=== PATIENT | female | born 1980 | race African-American/Black ===

== ENCOUNTER 2017-08-18 21:12 | Emergency (ER) | payer SELFPAY ==
[2017-08-19 00:26] LABS: Absolute Lymphocytes (CBC) 3.1 K/uL (0.7-4.9); Absolute Monocytes 0.6 K/uL (0.1-1.3); Basophils % 1.2 % (0-1.3); Eosinophils % 3.7 % (0-4.4); Hematocrit 35.4 % (36.0-45.0); Lymphocytes % 33.6 % (15.3-44.8); MCH 30.4 pg (27.0-35.0); MCV 87.8 fL (80-100); MPV 9.3 fL (7.6-11.3); Monocytes % 6.8 % (3.3-12.3); RBC Red Blood Cell Count 4.04 M/uL (3.86-4.86)
[2017-08-19 00:42] LABS: A1c Component 1.3 mg/dL; Hemoglobin A1c 12.1 % (4-6.0)
[2017-08-19 00:51] LABS: Potassium 3.8 mEq/L (3.6-5.0)
--- NOTE | 2017-08-19 01:05 | EDPHYS ---
Physician Documentation [facility] Name: Eris Sue Age: 36 yrs Sex: Female : 1980 Arrival Date: 08/18/2017 Time: 21:14 Bed 16 Private MD: ED Physician Edgardo Harley HPI: 08/18 23:56 This 36 yrs old Black Female presents to ER via Ambulatory with complaints of Headache, pkl Knee Pain, HEARTBURN. 23:57 Multiple small abscesses left knee, left buttock and lower back. Onset: The pkl symptoms/episode began/occurred 2 week(s) ago. Patient said she has diabetes but not taking any medications due to financial reasons. 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 - Social history:: Smoking status: Patient uses tobacco products, smokes one-half pack cigarettes per day. - Ebola Screening: : Patient denies travel to an Ebola-affected area in the 21 days before illness onset. ROS: 23:57 Eyes: Negative for injury, pain, redness, and discharge, ENT: Negative for injury, pkl pain, and discharge, Neck: Negative for injury, pain, and swelling, Cardiovascular: Negative for chest pain, palpitations, and edema, Respiratory: Negative for shortness of breath, cough, wheezing, and pleuritic chest pain, Abdomen/GI: Negative for abdominal pain, nausea, vomiting, diarrhea, and constipation, Back: Negative for injury and pain, : Negative for injury, bleeding, discharge, and swelling, MS/Extremity: Negative for injury and deformity, Neuro: Negative for headache, weakness, numbness, tingling, and seizure. 23:57 Skin: Positive for abscess, of the Left knee, left buttock and lower back. Exam: 08/19 00:03 Head/Face: Normocephalic, atraumatic. Eyes: Pupils equal round and reactive to light, pkl extra-ocular motions intact. Lids and lashes normal. Conjunctiva and sclera are non-icteric and not injected. Cornea within normal limits. Periorbital areas with no swelling, redness, or edema. ENT: Nares patent. No nasal discharge, no septal abnormalities noted. Tympanic membranes are normal and external auditory canals are clear. Oropharynx with no redness, swelling, or masses, exudates, or evidence of obstruction, uvula midline. Mucous membranes moist. Neck: Trachea midline, no thyromegaly or masses palpated, and no cervical lymphadenopathy. Supple, full range of motion without nuchal rigidity, or vertebral point tenderness. No Meningismus. Chest/axilla: Normal chest wall appearance and motion. Nontender with no deformity. No lesions are appreciated. Cardiovascular: Regular rate and rhythm with a normal S1 and S2. No gallops, murmurs, or rubs. Normal PMI, no JVD. No pulse deficits. Respiratory: Lungs have equal breath sounds bilaterally, clear to auscultation and percussion. No rales, rhonchi or wheezes noted. No increased work of breathing, no retractions or nasal flaring. Abdomen/GI: Soft, non-tender, with normal bowel sounds. No distension or tympany. No guarding or rebound. No evidence of tenderness throughout. Back: No spinal tenderness. No costovertebral tenderness. Full range of motion. MS/ Extremity: Pulses equal, no cyanosis. Neurovascular intact. Full, normal range of motion. Neuro: Awake and alert, GCS 15, oriented to person, place, time, and situation. Cranial nerves II-XII grossly intact. Motor strength 5/5 in all extremities. Sensory grossly intact. Cerebellar exam normal. Normal gait. Skin: abscess, that is small, approximately 0.5 cm(s), of the Left knee, left buttock and lower back, Abscesses are small and not ready for I and D. Vital Signs: 08/18 22:12 BP 133 / 84; Pulse 78; Resp 18; Temp 97.9; Pulse Ox 100% ; Weight 145.15 kg; Height 5 tl3 ft. 11 in. (180.34 cm); 23:45 BP 124 / 77; Pulse 77; Resp 15 S; Pulse Ox 100% on R/A; bs1 08/19 00:45 BP 116 / 74; Pulse 72; Resp 16 S; Pulse Ox 100% ; bs1 01:15 BP 112 / 71; Pulse 65; Resp 15 S; Temp 98(O); Pulse Ox 100% on R/A; Pain 0/10; bs1 08/18 22:12 Body Mass Index 44.63 (145.15 kg, 180.34 cm) tl3 MDM: 08/18 23:15 Patient medically screened. pk 08/19 01:03 Data reviewed: vital signs, nurses notes, radiologic studies. pk 08/18 23:55 Order name: CBC with Diff pk 08/18 23:55 Order name: Chem 7 pk 08/18 23:55 Order name: Hemoglobin A1c pk 08/18 23:55 Order name: Sed Rate pk 08/18 23:55 Order name: CBC with Automated Diff; Complete Time: 01:01 EDMS 08/18 23:55 Order name: Basic Metabolic Panel; Complete Time: 01:01 EDMS 08/18 23:55 Order name: Hemoglobin A1C; Complete Time: 01:01 EDMS 08/18 23:55 Order name: Sedimentation Rate, Westergren; Complete Time: 01:01 EDMS Administered Medications: 01:19 Drug: Cipro 500 mg Route: PO; bs1 01:33 Follow up: Response: No adverse reaction bs1 01:19 Drug: Bactrim (160 mg-800 mg (DS) 1 tablet Route: PO; bs1 01:32 Follow up: Response: No adverse reaction bs1 01:19 Drug: metFORMIN 1000 mg Route: PO; bs1 01:32 Follow up: Response: No adverse reaction bs1 Disposition: 08/19/17 01:05 Discharged to Home. Impression: Multiple small abscesses. Diabetes ( Non - compliance ). - Condition is Stable. - Prescriptions for Cipro 500 mg Oral Tablet - take 1 tablet by ORAL route every 12 hours for 7 days; 14 tablet. Metformin 1,000 mg Oral Tablet - take 1 tablet by ORAL route every 12 hours with morning and evening meals; 60 tablet. Bactrim DS 800- 160 mg Oral Tablet - take 1 tablet by ORAL route every 12 hours for 10 days; 20 tablet. - Medication Reconciliation Form, Thank You Letter, Antibiotic Education, Prescription Opioid Use form. - Follow up: Private Physician; When: 2 - 3 days; Reason: Re-evaluation by your physician. - Problem is new. - Symptoms are unchanged. Signatures: Dispatcher [facility] Edgardo Harley MD MD pkl Agustina Grimes, RN RN bs1 [place], Agnieszka, RN RN tl3 Corrections: (The following items were deleted from the chart) 01:36 01:05 08/19/2017 01:05 Discharged to Home. Impression: Multiple small abscesses. bs1 Diabetes ( Non - compliance ). Condition is Stable. Forms are Medication Reconciliation Form, Thank You Letter, Antibiotic Education, Prescription Opioid Use. Follow up: Private Physician; When: 2 - 3 days; Reason: Re-evaluation by your physician. Problem is new. Symptoms are unchanged. pkl
--- NOTE | 2017-08-19 01:05 | ER ---
Nurse's Notes [facility] Name: Eris Sue Age: 36 yrs Sex: Female : 1980 Arrival Date: 08/18/2017 Time: 21:14 Bed 16 Private MD: Diagnosis: Multiple small abscesses. Diabetes ( Non - compliance ) Presentation: 08/18 22:08 Presenting complaint: Patient states: abscess on right knee, hip and on buttock, tl3 headache steady pressure for the last week, heartburn present for two to three days, no OTC meds relieving symptoms. Transition of care: patient was not received from another setting of care. Onset of symptoms was August 16, 2017. Risk Assessment: Do you want to hurt yourself or someone else? Patient reports no desire to harm self or others. Initial Sepsis Screen: Does the patient meet any 2 criteria? No. Patient's initial sepsis screen is negative. Does the patient have a suspected source of infection? No. Patient's initial sepsis screen is negative. Care prior to arrival: Medication(s) given: tums, nexium, mylanta and Pepto. 22:08 Method Of Arrival: Ambulatory tl3 22:08 Acuity: ARIES 3 tl3 Triage Assessment: 22:12 Headache History: The patient has had previous headaches and this one is different than tl3 previous episodes. General: Appears uncomfortable, obese, well groomed, well developed, well nourished, Behavior is calm, cooperative, appropriate for age. Pain: Complains of pain in headache, left knee pain Pain currently is 9 out of 10 on a pain scale. Neuro: Level of Consciousness is awake, alert. 22:30 Pain: Pain began gradually, Also complains of nausea. 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 - Social history:: Smoking status: Patient uses tobacco products, smokes one-half pack cigarettes per day. - Ebola Screening: : Patient denies travel to an Ebola-affected area in the 21 days before illness onset. Screenin/18 01:21 Abuse screen: Denies threats or abuse. Denies injuries from another. Nutritional bs1 screening: No deficits noted. Tuberculosis screening: No symptoms or risk factors identified. Fall Risk None identified. Assessment: 08/18 22:48 General: Appears in no apparent distress. uncomfortable. Pain: Complains of pain in bs1 left knee, left hip, lower back, \T\ head. Neuro: Level of Consciousness is awake, alert, obeys commands, Oriented to person, place, time, situation, Appropriate for age. Neuro: Reports headache in right. Cardiovascular: Denies chest pain, shortness of breath, Heart tones S1 S2 present Capillary refill < 3 seconds Patient's skin is warm and dry. Respiratory: Airway is patent Trachea midline Respiratory effort is even, unlabored, Respiratory pattern is regular, symmetrical, Breath sounds are clear bilaterally. : No signs and/or symptoms were reported regarding the genitourinary system. EENT: No signs and/or symptoms were reported regarding the EENT system. Derm: Skin is intact, patient reports pain to left knee, reports having a boil to left knee, left hip and one that's forming in her lower back. Musculoskeletal: Circulation, motion, and sensation intact. Capillary refill < 3 seconds, Range of motion: intact in all extremities. 22:48 GI: Abdomen is round non-distended, Bowel sounds present X 4 quads. Reports epigastric bs1 pain, reports heartburn. 23:45 Reassessment: Patient appears in no apparent distress at this time. Patient and/or bs1 family updated on plan of care and expected duration. Pain level reassessed. Patient is alert, oriented x 3, equal unlabored respirations, skin warm/dry/pink. 08/19 01:10 Reassessment: Assisted Dr Harley with instructing patient on needing to follow up with a bs1 PCP and take diabetes medication and assess how she is doing. Patient states understanding of POC. 01:30 Reassessment: Patient appears in no apparent distress at this time. Patient and/or bs1 family updated on plan of care and expected duration. Pain level reassessed. Patient is alert, oriented x 3, equal unlabored respirations, skin warm/dry/pink. Patient denies pain at this time. Patient states feeling better. Patient states symptoms have improved. Vital Signs: 08/18 22:12 BP 133 / 84; Pulse 78; Resp 18; Temp 97.9; Pulse Ox 100% ; Weight 145.15 kg; Height 5 tl3 ft. 11 in. (180.34 cm); 23:45 BP 124 / 77; Pulse 77; Resp 15 S; Pulse Ox 100% on R/A; bs1 0618 00:45 BP 116 / 74; Pulse 72; Resp 16 S; Pulse Ox 100% ; bs1 01:15 BP 112 / 71; Pulse 65; Resp 15 S; Temp 98(O); Pulse Ox 100% on R/A; Pain 0/10; bs1 08/18 22:12 Body Mass Index 44.63 (145.15 kg, 180.34 cm) tl3 ED Course: 08/18 21:14 Patient arrived in ED. al2 22:11 Triage completed. tl3 22:12 Arm band placed on left wrist. tl3 22:49 Agustina Grimes, BRIANDA is Primary Nurse. bs1 23:15 Edgardo Harley MD is Attending Physician. pkl 08/19 00:11 Initial lab(s) drawn, by me, sent to lab. Inserted saline lock: 20 gauge in left cc antecubital area, using aseptic technique. Blood collected. 01:22 Patient has correct armband on for positive identification. Bed in low position. Call bs1 light in reach. Side rails up X 1. Pulse ox on. NIBP on. 01:22 No provider procedures requiring assistance completed. IV discontinued, bleeding bs1 controlled, No redness/swelling at site. Pressure dressing applied. Administered Medications: 01:19 Drug: Cipro 500 mg Route: PO; bs1 01:33 Follow up: Response: No adverse reaction bs1 01:19 Drug: Bactrim (160 mg-800 mg (DS) 1 tablet Route: PO; bs1 01:32 Follow up: Response: No adverse reaction bs1 01:19 Drug: metFORMIN 1000 mg Route: PO; bs1 01:32 Follow up: Response: No adverse reaction bs1 Outcome: 01:05 Discharge ordered by . pkl 01:23 Discharged to home ambulatory. bs1 01:23 Condition: stable 01:23 Discharge instructions given to patient, Instructed on discharge instructions, follow up and referral plans. medication usage, Demonstrated understanding of instructions, follow-up care, medications, Prescriptions given X 3. 01:36 Patient left the ED. bs1 Signatures: Edgardo Harley MD MD pkl Christian, Chelsea cc Salazar, Brittany, RN RN bs1 Emeli Crystal Tammy RN RN tl3 Corrections: (The following items were deleted from the chart) 08/18 23:40 22:48 GI: No signs and/or symptoms were reported involving the gastrointestinal system. bs1 bs1
[2017-08-19] MEDS ORDERED: SMZ./TMP. 800/160 MG TABLET ONE (01:17)
[2017-08-19] MEDS ORDERED: METFORMIN HCL 500 MG TAB ONE (01:17)
[2017-08-19] MEDS ORDERED: CIPROFLOXACIN HCL 500 MG TAB ONE (01:17)
[2017-08-19 02:57] VITALS: O2SAT 100
[2017-08-19 03:01] VITALS: BP 112/71; TEMP 98
== END 2017-08-19 01:36 | disposition home or self-care (01) ==
LOC: ER 21:12
DX: L02.416 Cutaneous abscess of left lower limb (principal); L02.31 Cutaneous abscess of buttock; L02.212 Cutaneous abscess of back [any part, except buttock and flank]; R51 Headache; R12 Heartburn; E11.9 Type 2 diabetes mellitus without complications; I10 Essential (primary) hypertension; F17.210 Nicotine dependence, cigarettes, uncomplicated; Z91.19 Patient's noncompliance with other medical treatment and regimen
CPT/HCPCS: 36415; 80048; 83036; 85025; 85652; 99284

== ENCOUNTER 2018-08-18 12:08 | Emergency (ER) | payer SELFPAY ==
[2018-08-18] MEDS ORDERED: IBUPROFEN 400 MG TAB ONE (13:46)
[2018-08-18] MEDS ORDERED: IBUPROFEN 200 MG TAB PO ONE (13:47)
[2018-08-18] MEDS ORDERED: ACETAMINOPHEN 500 MG TAB ONE (13:47)
--- NOTE | 2018-08-18 14:22 | RAD REPORT ---
EXAM DESCRIPTION: RAD - Lumbar Spine 3 Views - 08/18/2018 2:09 pm CLINICAL HISTORY: Back pain FINDINGS: Mild anterior subluxation L4 on L5 Alignment of the remainder lumbar spine is satisfactory No fracture is seen
--- NOTE | 2018-08-18 14:23 | RAD REPORT ---
EXAM DESCRIPTION: RAD - Elbow Right 3 View - 08/18/2018 2:09 pm CLINICAL HISTORY: Right elbow pain status post injury FINDINGS: No fracture or dislocation is seen.
--- NOTE | 2018-08-18 14:44 | RAD REPORT ---
EXAM DESCRIPTION: RAD - Hip Right 2 View - 08/18/2018 2:09 pm CLINICAL HISTORY: Right hip pain FINDINGS: No fracture or dislocation is seen. If the patient continues to have symptoms to suggest an occult fracture MRI would be recommended
--- NOTE | 2018-08-18 15:04 | EDPHYS ---
Physician Documentation [facility] Name: Ersi Sue Age: 37 yrs Sex: Female : 1980 Arrival Date: 08/18/2018 Time: 12:13 Bed 23 Private MD: ED Physician Willy Aguirre HPI: 08/18 15:15 This 37 yrs old Black Female presents to ER via Ambulatory with complaints of Fall wa Injury. 15:15 Details of fall: The patient fell from an upright position, while walking. Onset: The wa symptoms/episode began/occurred today. Associated injuries: The patient sustained pain on R side including Forearm, elbow and hip. also low back pain. Severity of symptoms: At their worst the symptoms were moderate, in the emergency department the symptoms are unchanged. The patient has not experienced similar symptoms in the past. The patient has not recently seen a physician. states fell at home attempting to get to her door this AM. denies LOC. 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 - Social history:: Smoking status: Patient/guardian denies using tobacco. - Ebola Screening: : No symptoms or risks identified at this time. - Family history:: not pertinent. - Hospitalizations: : No recent hospitalization is reported. ROS: 15:23 Constitutional: Negative for fever, chills, and weight loss, Eyes: Negative for injury, wa pain, redness, and discharge, ENT: Negative for injury, pain, and discharge, Neck: Negative for injury, pain, and swelling, Cardiovascular: Negative for chest pain, palpitations, and edema, Respiratory: Negative for shortness of breath, cough, wheezing, and pleuritic chest pain, Abdomen/GI: Negative for abdominal pain, nausea, vomiting, diarrhea, and constipation, : Negative for injury, bleeding, discharge, and swelling, Skin: Negative for injury, rash, and discoloration, Neuro: Negative for headache, weakness, numbness, tingling, and seizure, Psych: Negative for depression, anxiety, suicide ideation, homicidal ideation, and hallucinations. 15:23 Back: Positive for pain with movement, Negative for injury or acute deformity. 15:23 MS/extremity: Positive for pain, tenderness, of the right hip, Right elbow. Exam: 15:29 Constitutional: This is a well developed, well nourished patient who is awake, alert, wa and in no acute distress. Head/Face: Normocephalic, atraumatic. Eyes: Pupils equal round and reactive to light, extra-ocular motions intact. Lids and lashes normal. Conjunctiva and sclera are non-icteric and not injected. Cornea within normal limits. Periorbital areas with no swelling, redness, or edema. ENT: Nares patent. No nasal discharge, no septal abnormalities noted. Tympanic membranes are normal and external auditory canals are clear. Oropharynx with no redness, swelling, or masses, exudates, or evidence of obstruction, uvula midline. Mucous membranes moist. Neck: Trachea midline, no thyromegaly or masses palpated, and no cervical lymphadenopathy. Supple, full range of motion without nuchal rigidity, or vertebral point tenderness. No Meningismus. Chest/axilla: Normal chest wall appearance and motion. Nontender with no deformity. No lesions are appreciated. Cardiovascular: Regular rate and rhythm with a normal S1 and S2. No gallops, murmurs, or rubs. Normal PMI, no JVD. No pulse deficits. Respiratory: Lungs have equal breath sounds bilaterally, clear to auscultation and percussion. No rales, rhonchi or wheezes noted. No increased work of breathing, no retractions or nasal flaring. Abdomen/GI: Soft, non-tender, with normal bowel sounds. No distension or tympany. No guarding or rebound. No evidence of tenderness throughout. Skin: Warm, dry with normal turgor. Normal color with no rashes, no lesions, and no evidence of cellulitis. Neuro: Awake and alert, GCS 15, oriented to person, place, time, and situation. Cranial nerves II-XII grossly intact. Motor strength 5/5 in all extremities. Sensory grossly intact. Cerebellar exam normal. Normal gait. Psych: Awake, alert, with orientation to person, place and time. Behavior, mood, and affect are within normal limits. 15:29 Back: pain, that is mild, of the lumbar area, ROM is normal. 15:29 Musculoskeletal/extremity: Extremities: grossly normal except: noted in the right elbow. R hip: pain, tenderness. Vital Signs: 12:21 BP 123 / 80; Pulse 95; Resp 16; Temp 98; Pulse Ox 100% ; Weight 145.15 kg; Height 5 ft. bp 11 in. (180.34 cm); 13:05 BP 106 / 79; Pulse 84; Resp 16; Pulse Ox 100% on R/A; ca1 14:15 BP 138 / 85; Pulse 71; Pulse Ox 100% on R/A; jp3 15:00 BP 128 / 80; Pulse 57; Resp 17 S; Pulse Ox 100% on R/A; ca1 12:21 Body Mass Index 44.63 (145.15 kg, 180.34 cm) bp MDM: 13:03 Patient medically screened. ks 15:31 Differential diagnosis: contusion, fracture, sprain, strain. Data reviewed: vital wa signs, nurses notes. Test interpretation: by ED physician or midlevel provider: R elbow: no fx. R hip: no fx. lumbar x-ray: mild subluxation. 15:32 ED course: pain improved with po meds. ks 08/18 13:29 Order name: Elbow Right 3 View XRAY; Complete Time: 15:01 ks 08/18 13:29 Order name: Hip Right 2 View XRAY; Complete Time: 15:01 ks 08/18 13:29 Order name: Lumbar Spine (3 Views) XRAY; Complete Time: 14:59 ks Administered Medications: 14:05 Drug: Motrin 600 mg Route: PO; ca1 14:41 Follow up: Response: No adverse reaction; Pain is decreased ca1 14:06 Drug: Tylenol 1000 mg Route: PO; ca1 14:41 Follow up: Response: No adverse reaction; Pain is decreased ca1 Disposition: 08/18/18 15:03 Discharged to Home. Impression: fall, Right elbow pain secondary to trauma, Right hip pain secondary to trauma, acute lumbar sprain. - Condition is Stable. - Discharge Instructions: Fall Prevention in the Home, Back Pain, Adult, [id number], Back Injury Prevention. - Prescriptions for Ibuprofen 600 mg Oral Tablet - take 1 tablet by ORAL route every 8 hours As needed take with food; 15 tablet. - Medication Reconciliation Form, Thank You Letter, Antibiotic Education, Prescription Opioid Use form. - Follow up: Private Physician; When: 2 - 3 days; Reason: Recheck today's complaints. - Problem is new. - Symptoms have improved. - Notes: take pain medication as prescribed. see your doctor for further assessment if pain does not improve Signatures: Dispatcher [employer] EDMS Willy Aguirre MD MD wa Peltier, Brian, RN RN bp Maria T Wright RN RN ca1 Corrections: (The following items were deleted from the chart) 15:22 15:03 08/18/2018 15:03 Discharged to Home. Impression: fall; Right elbow pain secondary ca1 to trauma; Right hip pain secondary to trauma; acute lumbar sprain. Condition is Stable. Forms are Medication Reconciliation Form, Thank You Letter, Antibiotic Education, Prescription Opioid Use. Follow up: Private Physician; When: 2 - 3 days; Reason: Recheck today's complaints. Problem is new. Symptoms have improved. mary
--- NOTE | 2018-08-18 15:04 | ER ---
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 Transition of care: bp patient was not received from another setting of care. Onset of symptoms was August 18, 2018 at 11:30. Risk Assessment: Do you want to hurt yourself or someone else? Patient reports no desire to harm self or others. Initial Sepsis Screen: Does the patient meet any 2 criteria? No. Patient's initial sepsis screen is negative. Does the patient have a suspected source of infection? No. Patient's initial sepsis screen is negative. Care prior to arrival: None. 12:16 Method Of Arrival: Ambulatory bp 12:16 Acuity: ARIES 4 bp Triage Assessment: 12:42 General: Appears in no apparent distress. comfortable, obese, Behavior is calm, bp cooperative, appropriate for age. Pain: Complains of pain in back. EENT: No deficits noted. Neuro: Level of Consciousness is awake, alert, obeys commands, Oriented to person, place, time, situation, Appropriate for age. Cardiovascular: No deficits noted. Respiratory: Airway is patent Respiratory effort is even, unlabored, Respiratory pattern is regular, symmetrical. GI: No signs and/or symptoms were reported involving the gastrointestinal system. : No signs and/or symptoms were reported regarding the genitourinary system. Derm: No deficits noted. Musculoskeletal: Circulation, motion, and sensation intact. Range of motion: intact in all extremities. 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 - Social history:: Smoking status: Patient/guardian denies using tobacco. - Ebola Screening: : No symptoms or risks identified at this time. - Family history:: not pertinent. - Hospitalizations: : No recent hospitalization is reported. Screenin:05 Abuse screen: Denies threats or abuse. Denies injuries from another. Nutritional ca1 screening: No deficits noted. Tuberculosis screening: No symptoms or risk factors identified. Fall Risk Fall in past 12 months (25 points). Ambulatory Aid- Crutches/Cane/Walker (15 pts). Assessment: 13:05 General: Appears in no apparent distress. comfortable, Behavior is calm, cooperative, ca1 appropriate for age. Pain: Complains of pain in back, right hip and right arm Pain currently is 10 out of 10 on a pain scale. Pain began 1 hour ago. Neuro: Level of Consciousness is awake, alert, obeys commands, Oriented to person, place, time, situation. Cardiovascular: Heart tones S1 S2 present Capillary refill < 3 seconds Patient's skin is warm and dry. Respiratory: Airway is patent Respiratory effort is even, unlabored, Respiratory pattern is regular, symmetrical, Breath sounds are clear bilaterally. GI: Abdomen is round non-distended, Bowel sounds present X 4 quads. Abd is soft and non tender X 4 quads. : No deficits noted. No signs and/or symptoms were reported regarding the genitourinary system. EENT: No deficits noted. No signs and/or symptoms were reported regarding the EENT system. Derm: Skin is intact, is healthy with good turgor, Skin is pink, warm \T\ dry. Musculoskeletal: Circulation, motion, and sensation intact. Capillary refill < 3 seconds, Range of motion: intact in all extremities. 14:00 Reassessment: Patient appears in no apparent distress at this time. Patient and/or ca1 family updated on plan of care and expected duration. Pain level reassessed. Patient is alert, oriented x 3, equal unlabored respirations, skin warm/dry/pink. 14:40 Reassessment: Patient appears in no apparent distress at this time. Patient is alert, ca1 oriented x 3, equal unlabored respirations, skin warm/dry/pink. Patient states feeling better. 15:21 Reassessment: Patient appears in no apparent distress at this time. Patient is alert, ca1 oriented x 3, equal unlabored respirations, skin warm/dry/pink. Vital Signs: 12:21 BP 123 / 80; Pulse 95; Resp 16; Temp 98; Pulse Ox 100% ; Weight 145.15 kg; Height 5 ft. bp 11 in. (180.34 cm); 13:05 BP 106 / 79; Pulse 84; Resp 16; Pulse Ox 100% on R/A; ca1 14:15 BP 138 / 85; Pulse 71; Pulse Ox 100% on R/A; jp3 15:00 BP 128 / 80; Pulse 57; Resp 17 S; Pulse Ox 100% on R/A; ca1 12:21 Body Mass Index 44.63 (145.15 kg, 180.34 cm) bp ED Course: 12:13 Patient arrived in ED. rg4 12:20 Triage completed. bp 12:21 Arm band placed on. bp 13:03 Willy Aguirre MD is Attending Physician. wa 13:04 Maria T Wright, RN is Primary Nurse. ca1 13:05 Patient has correct armband on for positive identification. Bed in low position. Call ca1 light in reach. Side rails up X 1. Pulse ox on. NIBP on. Warm blanket given. 13:48 Patient moved to radiology via stretcher. az 14:12 Elbow Right 3 View XRAY In Process Unspecified. EDMS 14:12 Hip Right 2 View XRAY In Process Unspecified. EDMS 14:12 Lumbar Spine (3 Views) XRAY In Process Unspecified. EDMS 15:21 No provider procedures requiring assistance completed. Patient did not have IV access ca1 during this emergency room visit. Administered Medications: 14:05 Drug: Motrin 600 mg Route: PO; ca1 14:41 Follow up: Response: No adverse reaction; Pain is decreased ca1 14:06 Drug: Tylenol 1000 mg Route: PO; ca1 14:41 Follow up: Response: No adverse reaction; Pain is decreased ca1 Outcome: 15:03 Discharge ordered by . wa 15:21 Discharged to home via wheelchair. ca1 15:21 Condition: stable 15:21 Discharge instructions given to patient, Instructed on discharge instructions, follow up and referral plans. medication usage, Demonstrated understanding of instructions, follow-up care, medications, Prescriptions given X 1. 15:22 Patient left the ED. ca1 Signatures: Dispatcher [employer] EDMS Parris Calle rg4 Willy Aguirre MD MD wa Peltier, Brian, BRIANDA RN Storm Garcias jp3 Yancy Bailey, Maria T, RN RN ca1
[2018-08-18 15:27] VITALS: TEMP 98; O2SAT 100
[2018-08-18 15:43] VITALS: BP 128/80
== END 2018-08-18 15:22 | disposition home or self-care (01) ==
LOC: ER 12:08
DX: M79.631 Pain in right forearm (principal); M25.521 Pain in right elbow; M25.551 Pain in right hip; M54.5 Low back pain; E11.9 Type 2 diabetes mellitus without complications; I10 Essential (primary) hypertension; F32.9 Major depressive disorder, single episode, unspecified
CPT/HCPCS: 72100; 99284

== ENCOUNTER 2018-10-05 22:11 | Emergency (ER) | payer SELFPAY ==
[2018-10-05] MEDS ORDERED: DOXYCYCLINE 100 MG CAP PO ONE (22:44)
[2018-10-05] MEDS ORDERED: LIDOCAINE 1% MPF 5 ML VIAL ONE (22:45)
--- NOTE | 2018-10-05 22:47 | EDPHYS ---
Physician Documentation [facility] Name: Eris Sue Age: 37 yrs Sex: Female : 1980 Arrival Date: 10/05/2018 Time: 22:15 Bed 14 Private MD: ED Physician Edil Hankins HPI: 10/05 22:40 This 37 yrs old Black Female presents to ER via Unassigned with complaints of Boil. ryan 22:40 The patient presents with an abscess of the right gluteus raina, The patient presents ryan with cellulitis of the right gluteus raina. Description: The affected area is moderate sized, confluent, localized, erythematous, fluctuant, hot. Onset: The symptoms/episode began/occurred 3 day(s) ago. Possible cause(s): unknown. Modifying factors: the symptoms are alleviated by remaining still, the symptoms are aggravated by movement, pressure, squeezing the lesion and expressing the contents, touching. Modifying factors: the symptoms are alleviated by. Severity of symptoms: At their worst the symptoms were moderate, in the emergency department the symptoms are unchanged. The patient has experienced similar episodes in the past, multiple times. 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 - Social history:: Smoking status: Patient uses tobacco products, 5 sticks per day, Patient/guardian denies using alcohol, street drugs. - Family history:: not pertinent. - Ebola Screening: : Patient negative for fever greater than or equal to 101.5 degrees Fahrenheit, and additional compatible Ebola Virus Disease symptoms Patient denies exposure to infectious person Patient denies travel to an Ebola-affected area in the 21 days before illness onset. ROS: 22:40 Constitutional: Negative for fever, chills, and weight loss, Eyes: Negative for injury, ryan pain, redness, and discharge, ENT: Negative for injury, pain, and discharge, Neck: Negative for injury, pain, and swelling, Cardiovascular: Negative for chest pain, palpitations, and edema, Respiratory: Negative for shortness of breath, cough, wheezing, and pleuritic chest pain, Abdomen/GI: Negative for abdominal pain, nausea, vomiting, diarrhea, and constipation, Back: Negative for injury and pain, : Negative for injury, bleeding, discharge, and swelling, MS/Extremity: Negative for injury and deformity, Neuro: Negative for headache, weakness, numbness, tingling, and seizure, Psych: Negative for depression, anxiety, suicide ideation, homicidal ideation, and hallucinations, Allergy/Immunology: Negative for hives, rash, and allergies, Endocrine: Negative for neck swelling, polydipsia, polyuria, polyphagia, and marked weight changes, Hematologic/Lymphatic: Negative for swollen nodes, abnormal bleeding, and unusual bruising. 22:40 Skin: Positive for cellulitis, erythema, swelling. Exam: 22:40 Constitutional: This is a well developed, well nourished patient who is awake, alert, ryan and in no acute distress. Head/Face: Normocephalic, atraumatic. Eyes: Pupils equal round and reactive to light, extra-ocular motions intact. Lids and lashes normal. Conjunctiva and sclera are non-icteric and not injected. Cornea within normal limits. Periorbital areas with no swelling, redness, or edema. ENT: Nares patent. No nasal discharge, no septal abnormalities noted. Tympanic membranes are normal and external auditory canals are clear. Oropharynx with no redness, swelling, or masses, exudates, or evidence of obstruction, uvula midline. Mucous membranes moist. Neck: Trachea midline, no thyromegaly or masses palpated, and no cervical lymphadenopathy. Supple, full range of motion without nuchal rigidity, or vertebral point tenderness. No Meningismus. Chest/axilla: Normal chest wall appearance and motion. Nontender with no deformity. No lesions are appreciated. Cardiovascular: Regular rate and rhythm with a normal S1 and S2. No gallops, murmurs, or rubs. Normal PMI, no JVD. No pulse deficits. Respiratory: Lungs have equal breath sounds bilaterally, clear to auscultation and percussion. No rales, rhonchi or wheezes noted. No increased work of breathing, no retractions or nasal flaring. Abdomen/GI: Soft, non-tender, with normal bowel sounds. No distension or tympany. No guarding or rebound. No evidence of tenderness throughout. Back: No spinal tenderness. No costovertebral tenderness. Full range of motion. MS/ Extremity: Pulses equal, no cyanosis. Neurovascular intact. Full, normal range of motion. Neuro: Awake and alert, GCS 15, oriented to person, place, time, and situation. Cranial nerves II-XII grossly intact. Motor strength 5/5 in all extremities. Sensory grossly intact. Cerebellar exam normal. Normal gait. Psych: Awake, alert, with orientation to person, place and time. Behavior, mood, and affect are within normal limits. 22:40 Skin: abscess, that is small, that is moderate sized, cellulitis, that is mild, that is ryan moderate, induration, that is moderate is noted. Vital Signs: 22:30 BP 123 / 89; Pulse 79; Resp 19; Temp 98.5; Pulse Ox 100% ; Weight 147.42 kg; Height 5 rr5 ft. 11 in. (180.34 cm); Pain 10/10; 23:30 BP 155 / 79; Pulse 80; Resp 19; Pulse Ox 99% on R/A; rr5 10/06 00:15 BP 132 / 70; Pulse 75; Resp 17; Pulse Ox 99% on R/A; rr5 10/05 22:30 Body Mass Index 45.33 (147.42 kg, 180.34 cm) rr5 Procedures: 10/05 23:52 I \T\ D: Incision and drainage was performed for an abscess of the right Prepped with [facility] Betadine, Anesthetized with ml's 2% Lidocaine with epinephrine. 12 ml's 2% Lidocaine with epinephrine. Incised with #11 blade. Drained moderate amount purulent fluid. Packed with iodoform gauze, Dressing: sterile 4x4 gauze, the patient tolerated the procedure well. MDM: 22:29 Patient medically screened. [facility] 22:40 Data reviewed: vital signs, nurses notes, lab test result(s). [facility] 10/05 22:40 Order name: Wound Culture [facility] 10/05 22:39 Order name: Urine Dipstick-Ancillary (obtain specimen); Complete Time: 23:17 [facility] 10/05 22:39 Order name: Urine Test (obtain specimen); Complete Time: 23:17 [facility] 10/05 22:39 Order name: Blood Glucose Level; Complete Time: 23:12 ryan 10/05 22:40 Order name: Wound dressing; Complete Time: 00:15 ryan 10/05 23:05 Order name: Gloves, Sterile; Complete Time: 00:15 rr5 10/05 23:05 Order name: I\T\D Setup; Complete Time: 00:15 rr5 Administered Medications: 23:17 Drug: Bactrim (160 mg-800 mg (DS) 1 tablet Route: PO; rr5 10/06 00:17 Follow up: Response: No adverse reaction rr5 10/05 23:17 Drug: Doxycycline 200 mg Route: PO; rr5 10/06 00:17 Follow up: Response: No adverse reaction rr5 00:00 Drug: metFORMIN 1000 mg Route: PO; rr5 00:23 Follow up: Response: No adverse reaction rr5 00:02 Drug: Insulin Regular Human 10 units {Co-Signature: rr5 (August Friedman RN).} Route: rv Sub-Q; Site: right upper arm; 00:23 Follow up: Response: No adverse reaction rr5 Point of Care Testing: Blood Glucose: 10/05 23:05 Blood Glucose: 349 mg/dL; rr5 Ranges: Critical Glucose Levels:Adult <50 mg/dl or >400 mg/dl <40 mg/dl or >180 mg/dl Disposition: 10/05/18 22:45 Discharged to Home. Impression: Cutaneous abscess of other sites - buttock, right, Type 2 diabetes mellitus. - Condition is Stable. - Discharge Instructions: Skin Abscess, Type 2 Diabetes Mellitus, Diagnosis, Adult, Incision and Drainage, Obesity, Adult, Skin Abscess, [id number], Type 2 Diabetes Mellitus, Diagnosis, Adult, [id number], Incision and Drainage, Care After, Obesity, Adult, [id number]. - Prescriptions for Tylenol- Codeine #3 300-30 mg Oral Tablet - take 2 tablets by ORAL route every 6 hours As needed; 20 tablet. Doxycycline Hyclate 100 mg Oral Tablet - take 1 tablet by ORAL route once daily; 10 tablet. Bactrim DS 800- 160 mg Oral Tablet - take 1 tablet by ORAL route every 12 hours for 10 days; 20 tablet. Glyburide 5 mg Oral Tablet - take 1 tablet by ORAL route once daily; 20 tablet. Metformin 1,000 mg Oral Tablet - take 1 tablet by ORAL route every 12 hours with morning and evening meals; 40 tablet. - Medication Reconciliation Form, Thank You Letter, Antibiotic Education, Prescription Opioid Use form. - Follow up: Private Physician; When: 2 - 3 days; Reason: Recheck today's complaints, Continuance of care, Re-evaluation by your physician. Follow up: Curtis Fuentes MD; When: 2 - 3 days; Reason: Recheck today's complaints, Continuance of care, Re-evaluation by your physician. - Problem is new. - Symptoms have improved. Signatures: Dispatcher [employer] EDEdil Bay MD MD cha Vicente, Ronaldo RN RN August Ferrari RN RN rr5 August Friedman RN rr5 Corrections: (The following items were deleted from the chart) 10/06 00:25 10/05 22:45 10/05/2018 22:45 Discharged to Home. Impression: Cutaneous abscess of other rr5 sites - buttock, right; Type 2 diabetes mellitus. Condition is Stable. Forms are Medication Reconciliation Form, Thank You Letter, Antibiotic Education, Prescription Opioid Use. Follow up: Private Physician; When: 2 - 3 days; Reason: Recheck today's complaints, Continuance of care, Re-evaluation by your physician. Follow up: Curtis Fuentes; When: 2 - 3 days; Reason: Recheck today's complaints, Continuance of care, Re-evaluation by your physician. Problem is new. Symptoms have improved. ryan
[2018-10-05] MEDS ORDERED: SMZ./TMP. 800/160 MG TABLET ONE (23:00)
[2018-10-06] MEDS ORDERED: METFORMIN HCL 500 MG TAB ONE
[2018-10-06] MEDS ORDERED: INSULIN -REGULAR HUMAN 50 UNIT/0.5 ML ML ONE (00:01)
--- NOTE | 2018-10-06 00:31 | ER ---
Nurse's Notes [facility] Name: Eris Sue Age: 37 yrs Sex: Female : 1980 Arrival Date: 10/05/2018 Time: 22:15 Bed 14 Private MD: Diagnosis: Cutaneous abscess of other sites-buttock, right;Type 2 diabetes mellitus Presentation: 10/05 22:30 Presenting complaint: Patient states: it started like a small bump on my right leg. I rr5 drained discharges twice. and now its getting bigger and painful. pain score 10/10. i took bactrim for 4 days. 22:30 Transition of care: patient was not received from another setting of care. Onset of rr5 symptoms was September 29, 2018. Risk Assessment: Do you want to hurt yourself or someone else? Patient reports no desire to harm self or others. Initial Sepsis Screen: Does the patient meet any 2 criteria? No. Patient's initial sepsis screen is negative. Does the patient have a suspected source of infection? Yes: Skin breakdown/wound. Care prior to arrival: Medication(s) given: bactrim. 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 - Social history:: Smoking status: Patient uses tobacco products, 5 sticks per day, Patient/guardian denies using alcohol, street drugs. - Family history:: not pertinent. - Ebola Screening: : Patient negative for fever greater than or equal to 101.5 degrees Fahrenheit, and additional compatible Ebola Virus Disease symptoms Patient denies exposure to infectious person Patient denies travel to an Ebola-affected area in the 21 days before illness onset. Screenin:30 Abuse screen: Denies threats or abuse. Denies injuries from another. Nutritional rr5 screening: No deficits noted. Tuberculosis screening: No symptoms or risk factors identified. Fall Risk None identified. Total Casas Fall Scale indicates No Risk (0-24 pts). Assessment: 22:30 General: Appears in no apparent distress. uncomfortable, Behavior is calm, cooperative, rr5 appropriate for age. 22:30 Pain: Complains of pain in right trochanteric area Pain does not radiate. Pain rr5 currently is 10 out of 10 on a pain scale. Quality of pain is described as aching, Pain began gradually, Is intermittent. Neuro: Level of Consciousness is awake, alert, obeys commands, Oriented to person, place, time, situation, Appropriate for age. Cardiovascular: Capillary refill < 3 seconds Patient's skin is warm and dry. Respiratory: Airway is patent Respiratory effort is even, unlabored, Respiratory pattern is regular, symmetrical. GI: No signs and/or symptoms were reported involving the gastrointestinal system. : No signs and/or symptoms were reported regarding the genitourinary system. EENT: No signs and/or symptoms were reported regarding the EENT system. Derm: Skin is intact, Skin temperature is warm Wound noted right trochanteric area Wound is abscess Abscess located on right trochanteric area is quarter sized, has purulent drainage, is hot to touch, is raised. Musculoskeletal: Circulation, motion, and sensation intact. Capillary refill < 3 seconds. 23:30 Reassessment: Patient appears in no apparent distress at this time. Patient is alert, rr5 oriented x 3, equal unlabored respirations, skin warm/dry/pink. 10/06 00:19 Reassessment: Patient appears in no apparent distress at this time. Patient is alert, rr5 oriented x 3, equal unlabored respirations, skin warm/dry/pink. discharge instruction given and explained without complaints made. Patient states feeling better. Patient states symptoms have improved. Vital Signs: 10/05 22:30 BP 123 / 89; Pulse 79; Resp 19; Temp 98.5; Pulse Ox 100% ; Weight 147.42 kg; Height 5 rr5 ft. 11 in. (180.34 cm); Pain 10/10; 23:30 BP 155 / 79; Pulse 80; Resp 19; Pulse Ox 99% on R/A; rr5 0805 00:15 BP 132 / 70; Pulse 75; Resp 17; Pulse Ox 99% on R/A; rr5 08/04 22:30 Body Mass Index 45.33 (147.42 kg, 180.34 cm) rr5 ED Course: 10/05 22:15 Patient arrived in ED. es 22:29 Edil Hankins MD is Attending Physician. [facility] 22:30 Arm band placed on. rr5 22:35 Patient has correct armband on for positive identification. Bed in low position. Call rr5 light in reach. 22:42 August Friedman RN is Primary Nurse. rr5 22:44 Curtis Fuentes MD is Referral Physician. [facility] 23:09 Triage completed. rr5 10/06 00:10 Assist provider with I \T\ D: of an abscess on right right trochanteric area Set up I\T\D rr 5 tray. Performed by Edil Hankins MD Culture sent to lab. Wound packed. iodoform gauze, Dressing with 4X4s, tape Patient tolerated well. 00:21 Patient did not have IV access during this emergency room visit. rr5 Administered Medications: 10/05 23:17 Drug: Bactrim (160 mg-800 mg (DS) 1 tablet Route: PO; rr5 10/06 00:17 Follow up: Response: No adverse reaction rr5 10/05 23:17 Drug: Doxycycline 200 mg Route: PO; rr5 10/06 00:17 Follow up: Response: No adverse reaction rr5 00:00 Drug: metFORMIN 1000 mg Route: PO; rr5 00:23 Follow up: Response: No adverse reaction rr5 00:02 Drug: Insulin Regular Human 10 units {Co-Signature: rr5 (August Friedman RN).} Route: rv Sub-Q; Site: right upper arm; 00:23 Follow up: Response: No adverse reaction rr5 Point of Care Testing: Blood Glucose: 10/05 23:05 Blood Glucose: 349 mg/dL; rr5 Ranges: Outcome: 22:45 Discharge ordered by . [facility] 10/06 00:21 Discharged to home ambulatory. rr5 Condition: stable Discharge instructions given to patient, Instructed on discharge instructions, follow up and referral plans. medication usage, Demonstrated understanding of instructions, follow-up care, medications, Prescriptions given X 5x 00:25 Patient left the ED. rr5 Signatures: Edil Hankins MD MD cha Salyer, Edna es Vicente, Ronaldo, RN RN rv August Friedman RN RN rr5 August Friedman RN rr5 Corrections: (The following items were deleted from the chart) 00:25 00:21 No provider procedures requiring assistance completed. rr5 rr5
[2018-10-06 01:31] VITALS: TEMP 98.5
[2018-10-06 01:33] VITALS: O2SAT 99
[2018-10-06 01:34] VITALS: BP 132/70
== END 2018-10-06 00:25 | disposition home or self-care (01) ==
LOC: ER 22:11
PROC: 0J990ZZ Drainage of Buttock Subcutaneous Tissue and Fascia, Open Approach (ICD-10-PCS; principal; 2018-10-06)
DX: L02.31 Cutaneous abscess of buttock (principal); L03.317 Cellulitis of buttock; E11.9 Type 2 diabetes mellitus without complications; I10 Essential (primary) hypertension; Z72.0 Tobacco use
CPT/HCPCS: 82962; 87070; 87077; 87186; 87205; 96372; 99284

== ENCOUNTER 2019-04-04 14:28 | Emergency (ER) | payer SELFPAY ==
[2019-04-04] MEDS ORDERED: IBUPROFEN 200 MG TAB PO ONE (15:35)
[2019-04-04] MEDS ORDERED: HYDROCODONE/APAP 10/325 TAB ONE (15:35)
[2019-04-04] MEDS ORDERED: IBUPROFEN 400 MG TAB ONE (15:35)
[2019-04-04 15:49] LABS: Urine Blood 1+ (NEG); Urine Glucose 2+ (NEG); Urine Protein 3+ (NEG)
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
[2019-04-04 17:29] VITALS: TEMP 97.9
[2019-04-04 17:30] VITALS: BP 119/70; O2SAT 98
== END 2019-04-04 16:20 | disposition home or self-care (01) ==
LOC: ER 14:28
DX: S16.1XXA Strain of muscle, fascia and tendon at neck level, initial encounter (principal); M43.06 Spondylolysis, lumbar region; I10 Essential (primary) hypertension; E11.9 Type 2 diabetes mellitus without complications; F32.9 Major depressive disorder, single episode, unspecified; V49.40XA Driver injured in collision with unspecified motor vehicles in traffic accident, initial encounter
CPT/HCPCS: 70450; 71250; 72125; 81003; 81025; 99284

== ENCOUNTER 2022-01-20 21:05 | Emergency (ER) | payer OTHER, SELFPAY ==
[2022-01-20] MEDS ORDERED: MORPHINE 4 MG/ML SYR ONE (22:25)
[2022-01-20] MEDS ORDERED: BUPIVACAINE 0.5% PF 10 ML VIAL ONE (22:25)
[2022-01-20] MEDS ORDERED: LIDOCAINE 1% 20 ML MDV ONE (22:25)
[2022-01-20 22:52] LABS: Urine Blood 3+ (Negative); Urine Glucose 1+ (Negative); Urine Protein 2+ (Negative); Urine Specific Gravity 1.025 (1.005-1.030)
[2022-01-20 23:11] LABS: Urine Specific Gravity/Preg 1.025 (1.005-1.030)
[2022-01-20] MEDS ORDERED: CLINDAMYCIN 900MG/D5W 900 MG/50 ML IVPB IV ONE (23:48)
[2022-01-21 00:28] LABS: Lymphocytes % 31.4 % (15.3-44.8); MCV 87.2 fL (80-100); MPV 8.5 fL (7.6-11.3); RBC Red Blood Cell Count 3.67 M/uL (3.86-4.86)
[2022-01-21 00:42] LABS: Potassium 4.2 mmol/L (3.5-5.1)
--- NOTE | 2022-01-21 00:50 | ER ---
Nurse's Notes [facility] Name: Eris Sue Age: 41 yrs Sex: Female : 1980 Arrival Date: 01/20/2022 Time: 21:08 Bed 12 Private MD: Diagnosis: Cutaneous abscess of buttock-right Presentation: 01/20 21:11 Chief complaint: Abscess on right thigh x 1week. Coronavirus screen: At this time, the client does not indicate any symptoms associated with coronavirus-19. Ebola Screen: No symptoms or risks identified at this time. Risk Assessment: Do you want to hurt yourself or someone else? Patient reports no desire to harm self or others. Onset of symptoms was January 13, 2022. 21:11 Method Of Arrival: Ambulatory 21:11 Acuity: ARIES 4 hb Historical: - Allergies: 21:12 No Known Drug Allergies; hb - PMHx: 21:12 Depression; Diabetes - NIDDM; Hypertension; neuropathy; hb - Immunization history:: Adult Immunizations up to date. - Social history:: Smoking status: unknown. Screenin:45 Abuse screen: Denies threats or abuse. Denies injuries from another. Nutritional eh3 screening: No deficits noted. Tuberculosis screening: No symptoms or risk factors identified. Fall Risk None identified. Assessment: 21:45 General: Appears in no apparent distress. uncomfortable, Behavior is calm, cooperative, eh3 appropriate for age. Pain: Complains of pain in lateral aspect of right thigh. Neuro: Level of Consciousness is awake, alert, obeys commands, Oriented to person, place, time, situation. Cardiovascular: Capillary refill < 3 seconds Patient's skin is warm and dry. Respiratory: Airway is patent Respiratory effort is even, unlabored, Respiratory pattern is regular, symmetrical. GI: No signs and/or symptoms were reported involving the gastrointestinal system. : No signs and/or symptoms were reported regarding the genitourinary system. EENT: No signs and/or symptoms were reported regarding the EENT system. Derm: Abscess located on lateral aspect of right thigh is golf ball sized, Reports pain that is 7 out of 10 on a pain scale. Musculoskeletal: No signs and/or symptoms reported regarding the musculoskeletal system. 22:45 Reassessment: Patient and/or family updated on plan of care and expected duration. Pain eh3 level reassessed. Patient is alert, oriented x 3, equal unlabored respirations, skin warm/dry/pink. 23:45 Reassessment: Patient and/or family updated on plan of care and expected duration. Pain eh3 level reassessed. Patient is alert, oriented x 3, equal unlabored respirations, skin warm/dry/pink. 01/21 01:00 Reassessment: Patient states feeling better. Patient states symptoms have improved. tw5 Vital Signs: 01/20 21:11 BP 148 / 90; Pulse 102; Resp 16; Temp 98.1; Pulse Ox 100% on R/A; Weight 129.27 kg; hb Height 5 ft. 11 in. (180.34 cm); Pain 10/10; 21:45 BP 113 / 69; Pulse 89; Resp 16; Pulse Ox 100% on R/A; eh3 22:45 BP 135 / 79; Pulse 80; Resp 16; Pulse Ox 100% on R/A; eh3 23:45 BP 118 / 84; Pulse 78; Resp 16; Pulse Ox 100% on R/A; eh3 01/21 01:00 BP 104 / 64; Pulse 85; Resp 18; Pulse Ox 100% on R/A; tw5 01/20 21:11 Body Mass Index 39.75 (129.27 kg, 180.34 cm) hb ED Course: 01/20 21:08 Patient arrived in ED. as 21:08 Edil Fraire PA is PHCP. cp 21:08 Ryann Perez MD is Attending Physician. cp 21:12 Triage completed. hb 21:13 Lisa Kim, RN is Primary Nurse. eh3 21:45 Patient has correct armband on for positive identification. Bed in low position. Call 3 light in reach. Side rails up X2. Adult w/ patient. Pulse ox on. NIBP on. Door closed. Noise minimized. Lights dimmed. Warm blanket given. 22:43 Inserted saline lock: 20 gauge in right antecubital area, using aseptic technique. eh3 01/21 00:49 Curtis Fuentes MD is Referral Physician. cp 01:00 No provider procedures requiring assistance completed. IV discontinued, intact, tw5 bleeding controlled, No redness/swelling at site. Pressure dressing applied. Administered Medications: 01/20 22:45 Drug: morphine 4 mg Route: IVP; Infused Over: 4 mins; Site: right antecubital; 3 23:48 Follow up: Response: Pain is decreased 3 23:18 Drug: Lidocaine-Epinephrine -1%: (1:100,000) 10 ml {Note: administered by jagjit Trinh} Volume: 20 ml; Route: Infiltration; 23:18 Drug: Marcaine (bupivacaine)-Epinephrine (0.5 %) 10 ml {Note: administered by PA. Jairo} Route: Infiltration; 23:51 Drug: Clindamycin 900 mg Route: IVPB; Infused Over: 30 mins; Site: right antecubital; 3 01/21 00:37 Follow up: Response: No adverse reaction; IV Status: Completed infusion; IV Intake: [id number] 01:00 Drug: Bactrim (trimethoprim-sulfamethoxazole) (160 mg-800 mg (DS) 2 tablet Route: PO; tw5 01:00 Follow up: Response: No adverse reaction; Medication administered at discharge. 5 Intake: 00:37 IV: 50ml; Total: 50ml. [facility] Outcome: 00:49 Discharge ordered by MD. cp 01:00 Discharged to home ambulatory, with family. tw5 01:00 Condition: improved 01:00 Discharge instructions given to patient, Instructed on discharge instructions, follow up and referral plans. medication usage, wound care, Demonstrated understanding of instructions, follow-up care, medications, wound care, Prescriptions given X 3. 01:01 Patient left the ED. 5 Signatures: Amarilys Dow Corey, PA PA cp Baxter, Heather, RN RN hb Wood, Tiffany [facility] Lisa Kim RN RN [facility]
--- NOTE | 2022-01-21 00:50 | EDPHYS ---
Physician Documentation [facility] Name: Eris Sue Age: 41 yrs Sex: Female : 1980 Arrival Date: 01/20/2022 Time: 21:08 Bed 12 Private MD: ED Physician Ryann Perez HPI: 01/20 22:30 This 41 yrs old Black Female presents to ER via Ambulatory with complaints of Boil. cp 22:30 The patient presents with an abscess of the lateral aspect of right lower buttock. cp 22:30 Description: erythematous, fluctuant, warm. cp 22:30 Onset: The symptoms/episode began/occurred 1 week(s) ago. cp 22:30 Associated signs and symptoms: Pertinent negatives: drainage, fever, vomiting. Severity cp of symptoms: in the emergency department the symptoms are unchanged, despite home interventions. Historical: - Allergies: 21:12 No Known Drug Allergies; hb - PMHx: 21:12 Depression; Diabetes - NIDDM; Hypertension; neuropathy; hb - Immunization history:: Adult Immunizations up to date. - Social history:: Smoking status: unknown. ROS: 22:35 Constitutional: Negative for body aches, chills, fever, poor PO intake. cp 22:35 Eyes: Negative for injury, pain, redness, and discharge. cp 22:35 ENT: Negative for drainage from ear(s), ear pain, sore throat, difficulty swallowing, difficulty handling secretions. 22:35 Cardiovascular: Negative for chest pain, edema, palpitations. 22:35 Respiratory: Negative for cough, shortness of breath, wheezing. 22:35 Abdomen/GI: Negative for abdominal pain, nausea, vomiting, and diarrhea. 22:35 Back: Negative for pain at rest, pain with movement. 22:35 Skin: Positive for abscess, cellulitis, of the lateral aspect of right lower buttock. Exam: 22:40 Constitutional: The patient appears in no acute distress, alert, awake, non-toxic, well cp developed, well nourished, obese, uncomfortable. 22:40 Head/Face: Normocephalic, atraumatic. cp 22:40 Cardiovascular: Rate: tachycardic, Rhythm: regular. 22:40 Respiratory: the patient does not display signs of respiratory distress, Respirations: normal, no use of accessory muscles, no retractions, labored breathing, is not present, Breath sounds: are clear throughout, no decreased breath sounds. 22:40 Abdomen/GI: Exam negative for discomfort, distension, guarding, Inspection: obese 22:40 Skin: abscess, that is moderate sized, of the lateral aspect of right lower buttock, with fluctuance, that is moderate, with surrounding cellulitis, that is moderate. 22:40 Neuro: Orientation: to person, place \T\ time. Mentation: is normal. Vital Signs: 21:11 BP 148 / 90; Pulse 102; Resp 16; Temp 98.1; Pulse Ox 100% on R/A; Weight 129.27 kg; hb Height 5 ft. 11 in. (180.34 cm); Pain 10/10; 21:45 BP 113 / 69; Pulse 89; Resp 16; Pulse Ox 100% on R/A; eh3 22:45 BP 135 / 79; Pulse 80; Resp 16; Pulse Ox 100% on R/A; eh3 23:45 BP 118 / 84; Pulse 78; Resp 16; Pulse Ox 100% on R/A; eh3 01/21 01:00 BP 104 / 64; Pulse 85; Resp 18; Pulse Ox 100% on R/A; tw5 01/20 21:11 Body Mass Index 39.75 (129.27 kg, 180.34 cm) hb Procedures: 00:00 I \T\ D: Incision and drainage was performed for an abscess of the right lower lateral cp buttock Prepped with Betadine, Anesthetized with 15 ccs of mixture 1% lidocaine and 0.5% marcaine. Incised with #11 blade. Drained large amount purulent fluid. bloody fluid. Cultures obtained. Packed with iodoform gauze, 1/2 inch size. Dressing: sterile 4x4 gauze, the patient tolerated the procedure well. MDM: 01/20 21:14 Patient medically screened. cp 01/21 00:48 Data reviewed: vital signs, nurses notes, lab test result(s). cp 00:48 Counseling: I had a detailed discussion with the patient and/or guardian regarding: the cp historical points, exam findings, and any diagnostic results supporting the discharge/admit diagnosis, lab results, the need for outpatient follow up, a general surgeon, to return to the emergency department if symptoms worsen or persist or if there are any questions or concerns that arise at home. Response to treatment: the patient's symptoms have markedly improved after treatment, and as a result, I will discharge patient. ED course: VSS. Pain improved. I\T\D performed as noted. Will discharge to home to f/u with general surgery for wound check. 01/20 22:21 Order name: CBC with Diff; Complete Time: 00:43 cp 01/21 00:43 Interpretation: Normal except: RBC 3.67; HGB 10.8; HCT 32.0. 01/20 22:21 Order name: BMP; Complete Time: 00:43 cp 01/21 00:44 Interpretation: Normal except: NA 135; GLUC 309; BUN 20; GFR 70. 01/20 22:21 Order name: Wound Culture 01/20 22:52 Order name: Urine Dipstick-Ancillary; Complete Time: 00:24 EDMS 01/21 00:24 Interpretation: Normal except: UGLUC 1+; UKET Trace; UBLD 3+; UPROT 2+; UESTR Trace. 01/20 22:54 Order name: Urine --Ancillary (enter results); Complete Time: 00:24 wm 01/20 22:21 Order name: IV Saline Lock; Complete Time: 22:53 cp 01/20 22:21 Order name: Labs collected and sent; Complete Time: 22:53 cp 01/20 22:21 Order name: Urine Dipstick-Ancillary (obtain specimen); Complete Time: 22:53 cp 01/20 22:21 Order name: Urine Test (obtain specimen); Complete Time: 22:53 cp 01/20 22:21 Order name: I\T\D Setup; Complete Time: 23:48 cp Administered Medications: 01/20 22:45 Drug: morphine 4 mg Route: IVP; Infused Over: 4 mins; Site: right antecubital; [facility] 23:48 Follow up: Response: Pain is decreased 3 23:18 Drug: Lidocaine-Epinephrine -1%: (1:100,000) 10 ml {Note: administered by jagjit Trinh.} Volume: 20 ml; Route: Infiltration; 23:18 Drug: Marcaine (bupivacaine)-Epinephrine (0.5 %) 10 ml {Note: administered by PA. Jairo} Route: Infiltration; 23:51 Drug: Clindamycin 900 mg Route: IVPB; Infused Over: 30 mins; Site: right antecubital; 3 01/21 00:37 Follow up: Response: No adverse reaction; IV Status: Completed infusion; IV Intake: 21uctn1 01:00 Drug: Bactrim (trimethoprim-sulfamethoxazole) (160 mg-800 mg (DS) 2 tablet Route: PO; tw5 01:00 Follow up: Response: No adverse reaction; Medication administered at discharge. tw5 Disposition: 19:23 STAFF ATTESTATION: The patient's history, exam findings, diagnostics and a summary of sd2 any interventions or procedures was reviewed in detail with the ED KATHRIN. I confirm the diagnosis as documented by the KATHRIN and I agree with the care plan articulated in the disposition section with regards to our discussion of the patient's case. Ryann Perez MD. Disposition Summary: 01/21/22 00:49 Discharge Ordered Location: Home cp Problem: new cp Symptoms: have improved cp Condition: Stable cp Diagnosis - Cutaneous abscess of buttock - right cp Followup: cp - With: Curtis Fuentes MD - When: 1 - 2 days - Reason: Wound Recheck Discharge Instructions: - Discharge Summary Sheet cp - Skin Abscess cp - Incision and Drainage cp - Incision and Drainage, Care After cp Forms: - Medication Reconciliation Form cp - Thank You Letter cp - Antibiotic Education cp - Prescription Opioid Use cp Prescriptions: - Clindamycin HCl 300 mg Oral Capsule - take 1 capsule by ORAL route every 6 hours for 10 days; 40 capsule; Refills: 0, cp Product Selection Permitted - Bactrim DS 800-160 mg Oral Tablet - take 1 tablet by ORAL route every 12 hours for 10 days; 20 tablet; Refills: 0, cp Product Selection Permitted - Tylenol-Codeine #3 300 mg-30 mg Oral - take 2 tablet by ORAL route every 6-8 hours; 14 tablet; Refills: 0, Product cp Selection Permitted Signatures: Dispatcher [employer] EDMS Edil Fraire PA PA cp Marian Gomez RN RN hb Wood, Tiffany tw5 Lisa Kim RN RN 3 Ana, MD ISAIAS Garzon sd2 Corrections: (The following items were deleted from the chart) 01/20 23:38 23:38 This 41 yrs old Black Female presents to ER via Ambulatory with complaints of cp Boil. cp
[2022-01-21] MEDS ORDERED: SMZ./TMP. 800/160 MG TABLET ONE (00:55)
[2022-01-21 01:05] VITALS: TEMP 98.1; O2SAT 100
[2022-01-21 01:10] VITALS: BP 104/64
== END 2022-01-21 01:01 | disposition home or self-care (01) ==
LOC: ER 21:05
DX: L02.31 Cutaneous abscess of buttock (principal)
CPT/HCPCS: 36415; 80048; 81003; 81025; 85025; 87070; 87205; 96365; 96375; 99284

== ENCOUNTER 2022-09-01 14:18 | Emergency (ER) | payer OTHER ==
[2022-09-01] MEDS ORDERED: LIDOCAINE 1% 20 ML MDV ONE (14:48)
[2022-09-01] MEDS ORDERED: BUPIVACAINE 0.5% PF 10 ML VIAL ONE (14:48)
[2022-09-01] MEDS ORDERED: LORAZEPAM 1 MG TABLET ONE (15:02)
[2022-09-01] MEDS ORDERED: HYDROCODONE/APAP 5/325 MG TAB ONE (15:02)
--- NOTE | 2022-09-01 15:36 | ER ---
Nurse's Notes [facility] Name: Eris Sue Age: 41 yrs Sex: Female : 1980 Arrival Date: 09/01/2022 Time: 14:18 Bed 15 Private MD: Diagnosis: Cutaneous abscess of the lower back Presentation: 09/01 14:26 Chief complaint: Abscess on lower back x 3 days. Coronavirus screen: At this time, the hb client does not indicate any symptoms associated with coronavirus-19. Ebola Screen: No symptoms or risks identified at this time. Initial Sepsis Screen: Does the patient meet any 2 criteria? No. Patient's initial sepsis screen is negative. Does the patient have a suspected source of infection? No. Patient's initial sepsis screen is negative. Risk Assessment: Do you want to hurt yourself or someone else? Patient reports no desire to harm self or others. Onset of symptoms was August 29, 2022. 14:26 Method Of Arrival: Ambulatory hb 14:26 Acuity: ARIES 4 hb Historical: - Allergies: 14:27 No Known Drug Allergies; hb - Home Meds: 14:27 Risperdal Oral [Active]; lamotrigine oral [Active]; Trulicity subcutaneous [Active]; hb Glimepiride Oral [Active]; Metformin Oral [Active]; Januvia Oral [Active]; - PMHx: 14:27 Diabetes - NIDDM; Hypertension; neuropathy; Bipolar disorder; hb - PSHx: 14:27 section; Arm - Left; hb - Immunization history:: Adult Immunizations up to date. - Social history:: Smoking status: Patient reports the use of cigarette tobacco products, smokes one-half pack cigarettes per day. Screenin:59 [facility] ED Fall Risk Assessment (Adult) History of falling in the last 3 months, kc6 including since admission No falls in past 3 months (0 pts) Confusion or Disorientation No (0 pts) Intoxicated or Sedated No (0 pts) Impaired Gait No (0 pts) Mobility Assist Device Used Yes (1 pt) Altered Elimination No (0 pt) Score/Fall Risk Level 0 - 2 = Low Risk Oriented to surroundings, Maintained a safe environment, Educated pt \T\ family on fall prevention, incl call for assistance when getting out of bed, Assessed \T\ reinforced patient's understanding of fall precautions, Hourly rounding (assess needs \T\ fall precautionary measures) done. Abuse screen: Denies threats or abuse. Denies injuries from another. Nutritional screening: No deficits noted. Tuberculosis screening: No symptoms or risk factors identified. Assessment: 14:58 General: Appears in no apparent distress. uncomfortable, obese, Behavior is kc6 cooperative, appropriate for age, crying. Pain: Complains of pain in right lower back Pain began 2-3 days ago. Neuro: Robert Agitation-Sedation Scale (RASS): 0 - Alert and Calm Level of Consciousness is awake, alert, obeys commands, Oriented to person, place, time, situation, Appropriate for age. Cardiovascular: Capillary refill < 3 seconds. Respiratory: Airway is patent Trachea midline Respiratory effort is even, unlabored, Respiratory pattern is regular, symmetrical. GI: No signs and/or symptoms were reported involving the gastrointestinal system. : No signs and/or symptoms were reported regarding the genitourinary system. EENT: No signs and/or symptoms were reported regarding the EENT system. Derm: Skin is intact, is healthy with good turgor, Skin is pink, warm \T\ dry. Abscess located on rigth lower back is half dollar sized. Musculoskeletal: No signs and/or symptoms reported regarding the musculoskeletal system. Circulation, motion, and sensation intact. Capillary refill < 3 seconds, Range of motion: intact in all extremities. Vital Signs: 14:26 BP 136 / 68; Pulse 100; Resp 19; Temp 98.3(O); Pulse Ox 100% on R/A; Weight 129.27 kg; hb Height 5 ft. 11 in. ; Pain 10/10; 15:17 BP 131 / 84; Pulse 95; Resp 18 S; Pulse Ox 100% on R/A; kc6 14:26 Body Mass Index 39.75 (129.27 kg, 180.34 cm) hb 14:26 Pain Scale: Adult hb ED Course: 14:18 Patient arrived in ED. rg4 14:20 Katelyn Jiménez, BRIANDA is Primary Nurse. kc6 14:22 Davion Romero PA is PHCP. jmm 14:22 Danny Galvan MD is Attending Physician. jmm 14:27 Triage completed. hb 14:31 Arm band placed on. hb 14:59 Patient has correct armband on for positive identification. Bed in low position. Call kc6 light in reach. Side rails up X 1. 15:35 Curtis Fuentes MD is Referral Physician. [facility] 15:47 No provider procedures requiring assistance completed. Patient did not have IV access kc6 during this emergency room visit. Administered Medications: 14:40 Drug: Bupivacaine Infiltration (0.5 %) 10 ml {Note: to bedside.} Volume: 10 ml; Route: kc6 Infiltration; 15:38 Follow up: Response: No adverse reaction; Pain is decreased kc6 14:40 Drug: Lidocaine Infiltration (1 %) 20 ml {Note: to bedside.} Volume: 20 ml; Route: kc6 Infiltration; 15:38 Follow up: Response: No adverse reaction; Pain is decreased kc6 14:57 Drug: HYDROcodone-acetaminophen PO 5 mg-325 mg 1 tabs Route: PO; kc6 15:37 Follow up: Response: No adverse reaction; Pain is decreased; RASS: Alert and Calm (0) kc6 14:57 Drug: LORazepam PO 1 mg Route: PO; kc6 15:37 Follow up: Response: No adverse reaction; Anxiety decreased; RASS: Alert and Calm (0) kc6 Medication: 15:47 VIS not applicable for this client. kc6 Outcome: 15:35 Discharge ordered by . [facility] 15:47 Discharged to home ambulatory, with family. kc6 15:47 Condition: improved 15:47 Discharge instructions given to patient, Instructed on discharge instructions, follow up and referral plans. medication usage, wound care, Demonstrated understanding of instructions, follow-up care, medications, wound care, Prescriptions given X 3. 15:49 Patient left the ED. kc6 Signatures: Davion Romero PA PA jmm Baxter, Heather, RN RN Parris Christianson rg4 Katelyn Jiménez RN RN kc6 Corrections: (The following items were deleted from the chart) 14:31 14:27 PMHx: Depression; hb hb
--- NOTE | 2022-09-01 15:36 | EDPHYS ---
Physician Documentation [facility] Name: Eris Sue Age: 41 yrs Sex: Female : 1980 Arrival Date: 09/01/2022 Time: 14:18 Bed 15 Private MD: ED Physician Danny Galvan HPI: 09/01 14:22 This 41 yrs old Black Female presents to ER via Ambulatory with complaints of Abscess. jmm 14:22 The patient presents with an abscess of the coccyx. Onset: The symptoms/episode jmm began/occurred gradually, 3 day(s) ago. Possible cause(s): unknown. Associated signs and symptoms: Pertinent positives: swelling. Modifying factors: the symptoms are alleviated by nothing, the symptoms are aggravated by nothing. Historical: - Allergies: 14:27 No Known Drug Allergies; hb - Home Meds: 14:27 Risperdal Oral [Active]; lamotrigine oral [Active]; Trulicity subcutaneous [Active]; hb Glimepiride Oral [Active]; Metformin Oral [Active]; Januvia Oral [Active]; - PMHx: 14:27 Diabetes - NIDDM; Hypertension; neuropathy; Bipolar disorder; hb - PSHx: 14:27 section; Arm - Left; hb - Immunization history:: Adult Immunizations up to date. - Social history:: Smoking status: Patient reports the use of cigarette tobacco products, smokes one-half pack cigarettes per day. ROS: 14:22 Constitutional: Negative for fever, chills, and weight loss, Cardiovascular: Negative jmm for chest pain, palpitations, and edema, Respiratory: Negative for shortness of breath, cough, wheezing, and pleuritic chest pain. 14:22 Skin: Positive for swelling. 14:22 All other systems are negative. Exam: 14:22 Constitutional: This is a well developed, well nourished patient who is awake, alert, jmm and in no acute distress. Head/Face: atraumatic. Eyes: EOMI, no conjunctival erythema appreciated ENT: Moist Mucus Membranes Neck: Trachea midline, Supple Chest/axilla: Normal chest wall appearance and motion. Cardiovascular: Regular rate and rhythm. No edema appreciated Respiratory: Normal respirations, no respiratory distress appreciated Abdomen/GI: Non distended 14:22 Back: pain, that is moderate. 14:22 Musculoskeletal/extremity: ROM: intact in all extremities. 14:22 Skin: abscess noted to the lower back, . 14:22 Neuro: Orientation: is normal, Mentation: is normal. 14:22 Psych: Behavior/mood is pleasant, cooperative. Vital Signs: 14:26 BP 136 / 68; Pulse 100; Resp 19; Temp 98.3(O); Pulse Ox 100% on R/A; Weight 129.27 kg; hb Height 5 ft. 11 in. ; Pain 10/10; 15:17 BP 131 / 84; Pulse 95; Resp 18 S; Pulse Ox 100% on R/A; kc6 14:26 Body Mass Index 39.75 (129.27 kg, 180.34 cm) hb 14:26 Pain Scale: Adult hb MDM: 14:22 Patient medically screened. [facility] 19:30 Differential diagnosis: abscess. Data reviewed: vital signs. I considered the following [facility] discharge prescriptions or medication management in the emergency department Medications were administered in the Emergency Department. See MAR. Counseling: I had a detailed discussion with the patient and/or guardian regarding: the historical points, exam findings, and any diagnostic results supporting the discharge/admit diagnosis, the need for outpatient follow up, to return to the emergency department if symptoms worsen or persist or if there are any questions or concerns that arise at home. ED course: Patient is alert and non toxic in appearance in the ED. Patient states feeling much better. Advised to follow up with gen surgery for reevaluation. Patient understood and agrees with the plan of care. . 09/01 15:29 Order name: Wound Care; Complete Time: 15:37 [facility] Administered Medications: 14:40 Drug: Bupivacaine Infiltration (0.5 %) 10 ml {Note: to bedside.} Volume: 10 ml; Route: kc6 Infiltration; 15:38 Follow up: Response: No adverse reaction; Pain is decreased kc6 14:40 Drug: Lidocaine Infiltration (1 %) 20 ml {Note: to bedside.} Volume: 20 ml; Route: kc6 Infiltration; 15:38 Follow up: Response: No adverse reaction; Pain is decreased kc6 14:57 Drug: HYDROcodone-acetaminophen PO 5 mg-325 mg 1 tabs Route: PO; kc6 15:37 Follow up: Response: No adverse reaction; Pain is decreased; RASS: Alert and Calm (0) kc6 14:57 Drug: LORazepam PO 1 mg Route: PO; kc6 15:37 Follow up: Response: No adverse reaction; Anxiety decreased; RASS: Alert and Calm (0) kc6 Disposition Summary: 09/01/22 15:35 Discharge Ordered Location: Home [facility] Condition: Stable jm Diagnosis - Cutaneous abscess of the lower back [facility] Followup: [facility] - With: Curtis Fuentes MD - When: 2 - 3 days - Reason: Recheck today's complaints, Continuance of care, Re-evaluation by your physician Discharge Instructions: - Discharge Summary Sheet [facility] - Incision and Drainage, Care After [facility] Forms: - Medication Reconciliation Form [facility] - Thank You Letter [facility] - Antibiotic Education [facility] - Prescription Opioid Use [facility] - [email or web address] [facility] Prescriptions: - Ultracet 37.5-325 mg Oral Tablet - take 1 tablet by ORAL route every 6 hours As needed - for up to 5 days; do not jmm exceed 8 tablets per day.; 20 tablet; Refills: 0, Product Selection Permitted - Doxycycline Hyclate 100 mg Oral Tablet - take 1 tablet by ORAL route every 12 hours; 20 tablet; Refills: 0, Product [facility] Selection Permitted - Bactrim DS 800-160 mg Oral Tablet - take 1 tablet by ORAL route every 12 hours for 10 days; 20 tablet; Refills: 0, jm Product Selection Permitted Addendum: 09/05/2022 08:57 Co-signature as Attending Physician, Danny Galvan MD I reviewed the patient's care r n provided by the Advanced Practice Provider and agree with the diagnosis and treatment plan. Signatures: Davion Romero PA PA jmm Nieto, Roman, MD MD rn Baxter, Heather, RN RN hb Campbell, Kaitlyn, RN RN kc6 Corrections: (The following items were deleted from the chart) 09/01 14:31 14:27 PMHx: Depression; hb hb
[2022-09-01 15:54] VITALS: TEMP 98.3; O2SAT 100
[2022-09-01 15:56] VITALS: BP 131/84
== END 2022-09-01 15:49 | disposition home or self-care (01) ==
LOC: ER 14:18
DX: L02.212 Cutaneous abscess of back [any part, except buttock and flank] (principal); F17.210 Nicotine dependence, cigarettes, uncomplicated
CPT/HCPCS: 99283; J2001

== ENCOUNTER 2024-02-03 10:24 | Emergency (ER) | payer OTHER ==
[2024-02-03 11:37] LABS: Absolute Basophils 0.1 K/uL (0-0.5); Absolute Eosinophils 0.2 K/uL (0-0.5); Absolute Lymphocytes (CBC) 2.1 K/uL (0.7-4.9); Absolute Monocytes 0.7 K/uL (0.1-1.3); Absolute Neutrophil 4.2 K/uL (1.8-8.0); Basophils % 0.7 % (0-1.3); Eosinophils % 3.2 % (0-4.4); Hematocrit 29.7 % (36.0-45.0); Hemoglobin 9.7 g/dL (12.0-15.0); Lymphocytes % 29.3 % (15.3-44.8); MCHC 32.7 g/dL (32.0-36.0); MCV 88.6 fL (80-100); MPV 8.5 fL (7.6-11.3); Monocytes % 9.2 % (3.3-12.3); Neutrophils % 57.6 % (41.7-73.7); Platelets 215 thou/uL (152-406); RBC Red Blood Cell Count 3.35 M/uL (3.86-4.86)
[2024-02-03 11:52] LABS: Anion Gap 8.3 mEq/L (5.0-15.0); Magnesium 1.7 mg/dL (1.6-2.4); Potassium 4.3 mEq/L (3.5-5.1)
[2024-02-03] MEDS ORDERED: Ringers Lactate 1,000 ML IV ONE (11:59)
[2024-02-03 12:02] LABS: SARS-CoV-2 Antigen CONTROL BLUE LINE VIS/BG OK; SARS-CoV-2 Antigen Rapid Res Negative (Negative)
--- NOTE | 2024-02-03 12:05 | RAD REPORT ---
EXAM: CT brain without contrast HISTORY: Headache and confusion COMPARISON: 2019 TECHNIQUE: Multiple contiguous axial images were obtained and a CT of the brain without contrast.. Sagittal and coronal reconstruction performed. Automated exposure control, adjustment of the mA and/or kV according to patient size, and/or iterative reconstruction. Unless otherwise specified, incidental f indings do not require dedicated imaging follow-up FINDINGS: An intracranial bleed is not seen Ventricles are normal caliber No extra-axial fluid collection noted 3 cm low-density area left parietal lobe. No fluid within the visualized sinuses or mastoids noted. IMPRESSION: 3 cm low-density area left parietal lobe may represent an acute infarction or cerebritis. A mass with surrounding edema is another consideration. It is recommended that patient have an MRI of the brain with contrast for further evaluation.
--- NOTE | 2024-02-03 16:21 | RAD REPORT ---
EXAMINATION: MR Brain W/Wo Cont CLINICAL INDICATION: [facility] MAIN N mass Bed Name: 20 TECHNIQUE: Multiplanar multisequence MR images of the brain with and without were obtained before and after intr avenous administration of 20 mL MultiHance. COMPARISON: Noncontrast head CT of the same day FINDINGS: Expanded partially empty sella again noted. Foci of diffusion restriction along the left parasagittal parietal cortex with underlying white matte r foci of diffusion restriction extending to the periventricular/peritrigonal region. Other linear foci of diffusion restriction in the left deep white matter anteriorly extending to the margin of the left frontal horn. No evidence of intracranial hemorrhage. No susceptibility signal abnormality. Ventricles are normal caliber. Midline structures are unremarkable. No abnormal enhancement or mass effect. Major arterial and dural venous sinus flow voids are preserve d. No extra-axial fluid collection. No fluid within the visualized sinuses/mastoids. IMPRESSION: Foci of diffusion restriction in the left parietal, and to lesser extent left periventricular frontal regions, concerning for subacute ischemia. No evidence of hemorrhagic conversion. No abnormal enhancement or mass effect.
--- NOTE | 2024-02-03 16:44 | ER ---
Nurse's Notes [facility] Name: Eris Sue Age: 43 yrs Sex: Female : 1980 Arrival Date: 02/03/2024 Time: 10:24 Bed 20 Private MD: Diagnosis: Cerebral infarction, unspecified Presentation: 02/02 10:38 Chief complaint: Patient states: headache onset Saturday and right hand shaking onset cm10 yesterday. Pt reports that she feels confused and has some dizziness. Coronavirus screen: Client denies travel out of the [place] in the last 14 days. Ebola Screen: Patient denies travel to an Ebola-affected area in the 21 days before illness onset. No symptoms or risks identified at this time. Initial Sepsis Screen: Does the patient meet any 2 criteria? No. Patient's initial sepsis screen is negative. Does the patient have a suspected source of infection? No. Patient's initial sepsis screen is negative. Risk Assessment: Do you want to hurt yourself or someone else? Patient reports no desire to harm self or others. Onset of symptoms was February 02, 2024. 10:38 Method Of Arrival: EMS: [facility] cm10 10:38 Acuity: ARIES 3 cm10 10:40 Care prior to arrival: Glucose check: 146. cm10 Triage Assessment: 10:45 Headache History: Denies prior headaches. General: Appears in no apparent distress. cm10 comfortable, Behavior is calm, cooperative. Pain: Complains of pain in head Pain currently is 6 out of 10 on a pain scale. Pain began 2-3 days ago. Also complains of no other associated symptoms. Neuro: No deficits noted. Level of Consciousness is awake, alert, obeys commands, Oriented to person, place, time, situation, Appropriate for age INVOLUNTARY SHAKING OF RIGHT HAND. Reports headache. Neuro: Reports dizziness. Respiratory: No deficits noted. Airway is patent Respiratory effort is even, unlabored, Respiratory pattern is regular, symmetrical. 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 - Infectious Disease History:: Denies. - Social history:: Smoking status: unknown. Screenin:09 [facility] ED Fall Risk Assessment (Adult) History of falling in the last 3 months, cm10 including since admission No falls in past 3 months (0 pts) Confusion or Disorientation No (0 pts) Intoxicated or Sedated No (0 pts) Impaired Gait Yes (1 pt) Mobility Assist Device Used Yes (1 pt) Altered Elimination No (0 pt) Score/Fall Risk Level 0 - 2 = Low Risk Oriented to surroundings, Maintained a safe environment, Hourly rounding (assess needs \T\ fall precautionary measures) done. Abuse screen: Denies threats or abuse. Denies injuries from another. Nutritional screening: No deficits noted. Tuberculosis screening: No symptoms or risk factors identified. Assessment: 13:09 Reassessment: Patient appears in no apparent distress at this time. No changes from cm10 previously documented assessment. Patient and/or family updated on plan of care and expected duration. Pain level reassessed. Patient is alert, oriented x 3, equal unlabored respirations, skin warm/dry/pink. 18:21 Reassessment: Patient appears in no apparent distress at this time. Patient and/or cm10 family updated on plan of care and expected duration. Pain level reassessed. Patient states feeling better. Patient states symptoms have improved. 19:10 General: Appears in no apparent distress. Behavior is calm, cooperative. rg5 19:10 Pain: Denies pain. Neuro: Level of Consciousness is awake, alert, obeys commands, rg5 Oriented to person, place, time. Cardiovascular: Patient's skin is warm and dry. Respiratory: Airway is patent Trachea midline Respiratory effort is even, unlabored, Respiratory pattern is regular, symmetrical. Vital Signs: 10:38 BP 138 / 94; Pulse 78; Resp 18; Temp 97.8(O); Pulse Ox 100% on R/A; Weight 122.47 kg; cm10 Height 5 ft. 11 in. ; Pain 6/10; 11:00 BP 158 / 66; Pulse 71; Resp 18; Pulse Ox 99% on R/A; cm10 12:00 BP 154 / 92; Pulse 75; Resp 16; Pulse Ox 98% on R/A; cm10 12:30 BP 127 / 84; Pulse 67; Resp 16; Pulse Ox 100% on R/A; cm10 17:49 BP 154 / 96; Pulse 66; Resp 16; Pulse Ox 99% ; Pain 0/10; cm10 19:10 BP 118 / 94; Pulse 74; Resp 18; Temp 98; Pulse Ox 100% on R/A; Pain 0/10; rg5 10:38 Body Mass Index 37.66 (122.47 kg, 180.34 cm) cm10 10:38 Pain Scale: Adult cm10 17:49 Pain Scale: Adult cm10 19:10 Pain Scale: Adult rg5 Melanie Coma Score: 16:41 Eye Response: spontaneous(4). Motor Response: obeys commands(6). Verbal Response: sb4 oriented(5). Total: 15. NIH Stroke Scale Scores: 17:31 NIHSS Score: 0 sb4 ED Course: 10:30 Patient arrived in ED. cm10 10:30 Lela Dow, BRIANDA is Primary Nurse. cm10 10:32 Heydi Jolly PA-C is PHCP. sb4 10:32 Victor M Wray DO is Attending Physician. sb4 10:39 Triage completed. cm10 10:40 Arm band placed on left wrist. Patient placed in an exam room, on a stretcher, on pulse cm10 oximetry. 10:45 Patient has correct armband on for positive identification. Bed in low position. Call cm10 light in reach. Side rails up X2. Provided Education on: ER PROCESS AND PROCEDURES. 10:45 Pulse ox on. NIBP on. cm10 10:54 CT Head Brain wo Cont In Process Unspecified. EDMS 11:27 Flu Sent. cm10 11:27 SARS RAPID Sent. cm10 11:27 Basic Metabolic Panel Sent. cm10 11:27 CBC with Diff Sent. cm10 11:27 Magnesium Sent. cm10 11:27 Initial lab(s) drawn, by ga, sent to lab. COVID swab sent to lab. Flu and/or RSV swab cm10 sent to lab. Inserted saline lock: 20 gauge in left antecubital area, using aseptic technique. Blood collected. Flushed with 10 mL NS. 14:10 Patient moved to MRI via wheelchair. cm10 14:53 Brain W/Wo Cont In Process Unspecified. EDMS 17:[address] In Process Unspecified. EDMS 17:[address] In Process Unspecified. EDMS 18:22 Report given to BRIANDA LEVINE AT [facility] ER. cm10 18:22 No provider procedures requiring assistance completed. Patient transferred, IV remains cm10 in place. 19:07 Report given to BRIANDA VALERIO. cm10 19:11 Jose Merchant RN is Primary Nurse. rg5 Administered Medications: 11:54 CANCELLED (Physician Discretion): ns 0.9% 1000 ml IV at 1000 ml once; to be given as a sb4 bolus over 60 minutes 12:19 Drug: Lactated Ringers Solution IV 1000 ml IV at bolus continuous Route: IV; Rate: cm10 bolus; Site: left antecubital; 19:06 Follow up: Response: No adverse reaction; IV Status: Completed infusion; IV Intake: cm10 1000ml 17:49 Drug: Clopidogrel PO 75 mg PO once Route: PO; cm10 19:06 Follow up: Response: No adverse reaction cm10 17:49 Drug: Aspirin PO Chewable Tablet 162 mg PO once Route: PO; cm10 19:06 Follow up: Response: No adverse reaction cm10 17:49 Drug: foLIC Acid IVPB 1 mg IVPB once Route: IVPB; Site: left antecubital; cm10 17:49 Follow up: Response: No adverse reaction; IV Status: Completed infusion; IV Intake: cm10 0.2ml 19:05 Drug: Nicoderm CQ Transdermal Patch 21 mg/24 hr 1 patches Transdermal once Route: rg5 Transdermal; Site: affected area; 19:31 Follow up: Response: No adverse reaction rg5 Medication: 13:10 VIS not applicable for this client. cm10 Intake: 17:49 IV: 0ml; Total: 0ml. cm10 19:06 IV: 1000ml; Total: 1000ml. cm10 Outcome: 16:43 ER care complete, transfer ordered by . sb4 18:22 Transferred by ground EMS to [facility], Transfer form completed. cm10 18:22 Condition: stable 18:22 Instructed on the need for transfer, 20:04 Patient left the ED. vc1 NIH Stroke Scale - NIH Stroke Score Date: 02/03/2024 Time: 17:31 Total Score = 0 10. Dysarthria (speech clarity - read or repeat words) - 0(Normal) 11. Extinction and Inattention (visual/tactile/auditory/spatial/personal) - 0(No abnormality) 1a. Level of Consciousness (LOC) - 0(Alert) 1b. Level of Consciousness (LOC) (Month \T\ Age) - 0(Both) 1c. LOC Commands (Open \T\ Closes Eyes/Senior Ui Web Developer) - 0(Both) 2. Best Gaze (Lateral Gaze Paresis) - 0(Normal) 3. Visual Field Loss - 0(No visual loss) 4. Facial Palsy - 0(Normal) 5a. Left Arm: Motor (10-second hold) - 0(No drift) 5b. Right Arm: Motor (10-second hold) - 0(No drift) 6a. Left Leg: Motor (5-second hold - always test supine) - 0(No drift) 6b. Right Leg: Motor (5-second hold - always test supine) - 0(No drift) 7. Limb Ataxia (finger/nose \T\ heel/marie - test with eyes open) - 0(Absent) 8. Sensory Loss (pinprick arms/legs/face) - 0(Normal) 9. Best Language: Aphasia (description/naming/reading) - 0(No aphasia) Initials: sb4 Signatures: Dispatcher [employer] EDMS Veronica Berger RN RN vc1 Heydi Jolly PARubyC PARubyC sb4 Lela Dow, RN RN cm10 Jose Merchant RN RN rg5
--- NOTE | 2024-02-03 16:44 | EDPHYS ---
Physician Documentation [facility] Name: Eris Sue Age: 43 yrs Sex: Female : 1980 Arrival Date: 02/03/2024 Time: 10:24 Bed 20 Private MD: ED Physician Victor M Wray HPI: 02/02 12:56 This 43 yrs old Black Female presents to ER via EMS with complaints of Headache, Hand sb4 shaking. 12:56 patient states that she woke up today and her right index finger and right middle sb4 finger were shaking. she reports an intermittent headache over the past few days as well as some confusion. she denies any prior episodes of this. history of hypertension,insulin dependent diabetes, and bipolar and reports compliance with her medications, no recent changes. denies any seizure activity, numbness, tingling, gait abnormalities. 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 - Infectious Disease History:: Denies. - Social history:: Smoking status: unknown. ROS: 13:43 Constitutional: Negative for fever, chills, and weight loss, sb4 13:47 Neuro: Positive for headache, tremor, sb4 13:47 All other systems are negative, Exam: 13:47 Head/Face: Normocephalic, atraumatic. Eyes: Extra-ocular motions intact. Periorbital sb4 areas with no swelling, redness, or edema. ENT: Mucous membranes moist. Cardiovascular: Regular rate and rhythm with a normal S1 and S2. Respiratory: No increased work of breathing, no retractions or nasal flaring. Abdomen/GI: Soft, non-tender, no distension. Skin: Warm, dry with normal turgor. Normal color with no rashes, no lesions, and no evidence of cellulitis. Neuro: Awake and alert, GCS 15, oriented to person, place, time, and situation. Motor strength 5/5 in all extremities. Sensory grossly intact. 13:47 Constitutional: The patient appears in no acute distress, alert, awake, obese, 13:47 Neuro: Abnormal movements: irregular flexion like tremor of index and middle right finger at DIP. Vital Signs: 10:38 BP 138 / 94; Pulse 78; Resp 18; Temp 97.8(O); Pulse Ox 100% on R/A; Weight 122.47 kg; cm10 Height 5 ft. 11 in. ; Pain 6/10; 11:00 BP 158 / 66; Pulse 71; Resp 18; Pulse Ox 99% on R/A; cm10 12:00 BP 154 / 92; Pulse 75; Resp 16; Pulse Ox 98% on R/A; cm10 12:30 BP 127 / 84; Pulse 67; Resp 16; Pulse Ox 100% on R/A; cm10 17:49 BP 154 / 96; Pulse 66; Resp 16; Pulse Ox 99% ; Pain 0/10; cm10 19:10 BP 118 / 94; Pulse 74; Resp 18; Temp 98; Pulse Ox 100% on R/A; Pain 0/10; rg5 10:38 Body Mass Index 37.66 (122.47 kg, 180.34 cm) cm10 10:38 Pain Scale: Adult cm10 17:49 Pain Scale: Adult cm10 19:10 Pain Scale: Adult rg5 NIH Stroke Scale Scores: 17:31 NIHSS Score: 0 sb4 Melanie Coma Score: 16:41 Eye Response: spontaneous(4). Motor Response: obeys commands(6). Verbal Response: sb4 oriented(5). Total: 15. MDM: 10:32 Medical Screening Exam initiated sb4 14:11 Awaiting: MRI results. sb4 16:41 Data reviewed: vital signs, nurses notes, lab test result(s), radiologic studies. sb4 02/02 10:38 Order name: Basic Metabolic Panel; Complete Time: 11:53 sb4 02/02 10:38 Order name: CBC with Diff; Complete Time: 11:52 sb4 02/02 10:38 Order name: Magnesium; Complete Time: 11:53 sb4 02/02 10:38 Order name: SARS RAPID; Complete Time: 12:02 sb4 02/02 10:38 Order name: Flu; Complete Time: 12:03 sb4 02/02 10:38 Order name: CT Head Brain wo Cont; Complete Time: 12:05 sb4 02/02 13:19 Order name: Brain W/Wo Cont; Complete Time: 16:25 EDMS 02/02 16:59 Order name: Head Angio CT; Complete Time: 18:05 sb4 02/02 16:59 Order name: Neck Angio CT; Complete Time: 18:05 sb4 02/02 10:38 Order name: IV Saline Lock; Complete Time: 11:26 sb4 02/02 10:38 Order name: Labs collected and sent; Complete Time: 11:27 sb4 Administered Medications: 11:54 CANCELLED (Physician Discretion): ns 0.9% 1000 ml IV at 1000 ml once; to be given as a sb4 bolus over 60 minutes 12:19 Drug: Lactated Ringers Solution IV 1000 ml IV at bolus continuous Route: IV; Rate: cm10 bolus; Site: left antecubital; 19:06 Follow up: Response: No adverse reaction; IV Status: Completed infusion; IV Intake: cm10 1000ml 17:49 Drug: Clopidogrel PO 75 mg PO once Route: PO; cm10 19:06 Follow up: Response: No adverse reaction cm10 17:49 Drug: Aspirin PO Chewable Tablet 162 mg PO once Route: PO; cm10 19:06 Follow up: Response: No adverse reaction cm10 17:49 Drug: foLIC Acid IVPB 1 mg IVPB once Route: IVPB; Site: left antecubital; cm10 17:49 Follow up: Response: No adverse reaction; IV Status: Completed infusion; IV Intake: cm10 0.2ml 19:05 Drug: Nicoderm CQ Transdermal Patch 21 mg/24 hr 1 patches Transdermal once Route: rg5 Transdermal; Site: affected area; 19:31 Follow up: Response: No adverse reaction rg5 Disposition: 19:44 I was immediately available on-site in the Emergency Department for consultation in the ms3 care of the patient. Disposition Summary: 02/03/24 16:43 Transfer Ordered Notes: Transfer Location: [facility] sb4 Reason: Higher level of care sb4 Condition: Fair sb4 Problem: new sb4 Symptoms: have improved sb4 Accepting Physician: neuro(02/03/24 20:04) vc1 Diagnosis - Cerebral infarction, unspecified sb4 Forms: - Medication Reconciliation Form sb4 - SBAR form sb4 NIH Stroke Scale - NIH Stroke Score Date: 02/03/2024 Time: 17:31 Total Score = 0 10. Dysarthria (speech clarity - read or repeat words) - 0(Normal) 11. Extinction and Inattention (visual/tactile/auditory/spatial/personal) - 0(No abnormality) 1a. Level of Consciousness (LOC) - 0(Alert) 1b. Level of Consciousness (LOC) (Month \T\ Age) - 0(Both) 1c. LOC Commands (Open \T\ Closes Eyes/Butadiene Convertor Operator) - 0(Both) 2. Best Gaze (Lateral Gaze Paresis) - 0(Normal) 3. Visual Field Loss - 0(No visual loss) 4. Facial Palsy - 0(Normal) 5a. Left Arm: Motor (10-second hold) - 0(No drift) 5b. Right Arm: Motor (10-second hold) - 0(No drift) 6a. Left Leg: Motor (5-second hold - always test supine) - 0(No drift) 6b. Right Leg: Motor (5-second hold - always test supine) - 0(No drift) 7. Limb Ataxia (finger/nose \T\ heel/marie - test with eyes open) - 0(Absent) 8. Sensory Loss (pinprick arms/legs/face) - 0(Normal) 9. Best Language: Aphasia (description/naming/reading) - 0(No aphasia) Initials: sb4 Signatures: Dispatcher [employer] EDMS Victor M Wray DO DO ms3 Veronica Berger RN RN vc1 Heydi Jolly PA-C PA-C sb4 Lela Dow RN RN cm10 Jose Merchant, RN RN rg5 Corrections: (The following items were deleted from the chart) 11:54 11:53 NS 0.9% IV 1000 ml IV at 1000 ml once; to be given as a bolus over 60 sb4 minutes ordered. sb4 12:58 12:56 patient states that she woke up today and her right index finger and sb4 right middle finger were shaking. she reports an intermittent headache over the past few days as well as some confusion. she denies any prior episodes of this. sb4 13:19 12:06 Brain With Cont+MRI.RAD.BRZ ordered. EDMS EDMS 17:00 17:00 Neck Angio+CT.RAD.BRZ ordered. EDMS EDMS 20:04 16:43 neuro sb4 vc1
[2024-02-03] MEDS ORDERED: CLOPIDOGREL 75 MG TABLET ONE (17:24)
[2024-02-03] MEDS ORDERED: FOLIC ACID 5 MG/ML VIAL ONE (17:25)
[2024-02-03] MEDS ORDERED: ASPIRIN EC 81 MG TAB PO ONE (17:25)
--- NOTE | 2024-02-03 18:00 | RAD REPORT ---
EXAMINATION: CTA HEAD CLINICAL INDICATION: Female, 43 years old. STROKE ALERT TECHNIQUE: Axial CT images were obtained through the head after intravenous contrast utilizing angiog raphic protocol with 3D post-processing (maximum intensity projection images, volume rendered images and/or shaded surface rendered images). One or more of the following dose reduction technique s were used: Automated exposure control, adjustment of the mA and/or kV according to patient size, and/or iterative reconstruction. Unless otherwise specified, incidental findings do not require dedic ated imaging follow-up. COMPARISON: Noncontrast head CT of the same day FINDINGS: Venous contamination somewhat limits. ICA: The petrous, cavernous, and supraclinoid segments of the bilateral internal carotid arteries are normal. GRIS: Anterior cerebral arteries are normal bilaterally. The anterior communicating artery is patent. MCA: Middle cerebral arteries are normal bilaterally. FINANCIAL REPORTING ADVISOR: Posterior cerebral arteries are normal bilaterally except for somewhat diminutive caliber of the right distal FINANCIAL REPORTING ADVISOR and its branches. Vertebrobasilar: The vertebral arteries are patent. The basilar artery is normal in appearance. 3D images confirm these findings. IMPRESSION: No evidence of large vessel occlusion or hemodynamically significant stenosis. Diminutive caliber rig ht distal FINANCIAL REPORTING ADVISOR branches, may relate to atherosclerotic narrowing.
--- NOTE | 2024-02-03 18:02 | RAD REPORT ---
EXAMINATION: CT Neck Angio CLINICAL INDICATION: Female, 43 years old. [facility] stroke Bed Name: 20 TECHNIQUE: Axial CT images were obtained from the aortic arch to the skull base after intravenous con trast utilizing angiographic protocol. Multiplanar reformats, as well as 3D post-processing (maximum intensity projection images, volume rendered images and/or shaded surface rendered images) w ere generated and reviewed. One or more of the following dose reduction techniques were used: Automated exposure control, adjustment of the mA and/or kV according to patient size, and/or iterativ e reconstruction. Unless otherwise specified, incidental findings do not require dedicated imaging follow-up. COMPARISON: Noncontrast head CT of earlier the same day FINDINGS: AORTA: The imaged aortic arch is normal. Normal three-vessel configuration of the arch. CCA: No artifact The common carotid arteries are patent and normal in caliber. ICA/ECA: Bilateral internal and external carotid arteries are patent. There is no significant interna l carotid artery stenosis. VERTEBRAL: The cervical vertebral arteries are patent to the skull base although streak artifact resu lting from dense venous contrast limits evaluation of the proximal left vertebral artery. The left vertebral artery is dominant with diminutive caliber of the proximal right V1 segment. SOFT TISSUE: No significant neck soft tissue abnormalities. The visualized lung apices are clear. 3D images confirm these findings. IMPRESSION: No significant flow abnormality of the neck vessels is identified. Findings as above. NASCET criteria used to quantify ICA stenosis, with the following grading scheme: Mild 0-49% stenosis Moderate 50-69% stenosis Severe 70-99% stenosis Reference: [place] Symptomatic Carotid Endarterectomy Trial Collaborators; Mani MOLINA, Julita BUCKNER, Ahsan RB, et al. Beneficial effect of carotid endarterectomy in symptomatic patients with high-grade carotid stenosis. N Engl J Med. 1990Oct 16;325(7):445-53.
[2024-02-03] MEDS ORDERED: NICOTINE 21 MG/PAT TD ONE (19:25)
[2024-02-03 22:21] VITALS: BP 118/94; TEMP 98; O2SAT 100
== END 2024-02-03 20:04 | disposition short-term general hospital (02) ==
LOC: ER 10:24
DX: I63.9 Cerebral infarction, unspecified (principal); I10 Essential (primary) hypertension; R29.700 NIHSS score 0; E11.9 Type 2 diabetes mellitus without complications
CPT/HCPCS: 96361; 85025; 80048; 36415; 83735; 87804 ×2; 70450; 70496; 70498; 70553; 96374; 99285; 87811; Q9967; A9577; J7120

== ENCOUNTER 2024-02-26 00:17 | Emergency (ER) | payer OTHER ==
[2024-02-26 02:39] LABS: Absolute Eosinophils 0.2 K/uL (0-0.5); Absolute Lymphocytes (CBC) 2.6 K/uL (0.7-4.9); Absolute Monocytes 0.7 K/uL (0.1-1.3); Absolute Neutrophil 3.7 K/uL (1.8-8.0); Basophils % 0.6 % (0-1.3); Eosinophils % 2.7 % (0-4.4); Hematocrit 28.2 % (36.0-45.0); Hemoglobin 9.2 g/dL (12.0-15.0); Lymphocytes % 35.9 % (15.3-44.8); MCH 28.9 pg (27.0-35.0); MCHC 32.5 g/dL (32.0-36.0); MCV 88.9 fL (80-100); MPV 9.1 fL (7.6-11.3); Monocytes % 9.9 % (3.3-12.3); Neutrophils % 50.9 % (41.7-73.7); PT Prothrombin Time 10.2 SECONDS (9.4-12.5); Platelets 231 thou/uL (152-406); Protime INR 0.91; RBC Red Blood Cell Count 3.17 M/uL (3.86-4.86); Red Cell Distribution Width 13.9 % (12.1-15.2)
[2024-02-26 02:57] LABS: Albumin 2.8 g/dL (3.4-5.0); Albumin/Globulin Ratio 0.8 (1.1-1.8); Alkaline Phosphatase 83 U/L (45-117); Anion Gap 8.2 mEq/L (5.0-15.0); BUN Blood Urea Nitrogen 25 mg/dL (7-18); Bicarbonate 21 mEq/L (21-32); Globulin 3.6 g/dL (2.3-3.5); Glomerular Filtration Rate 43 ml/min (=/>90); Glucose Level 207 mg/dL (74-106); Magnesium 1.7 mg/dL (1.6-2.4); NT PRO-BNP 92 pg/mL (<125); Potassium 4.2 mEq/L (3.5-5.1); Protein, Total 6.4 g/dL (6.4-8.2); Sodium Level 138 mEq/L (136-145); Troponin High Sensitivity 4.6 pg/mL (<58.9)
[2024-02-26 02:58] LABS: ALT/SGPT < 14 U/L (13-56); AST/SGOT < 10 U/L (15-37); Bilirubin Direct < 0.2 mg/dL (0-0.2); Bilirubin Total < 0.2 mg/dL (0.2-1.0)
--- NOTE | 2024-02-26 03:47 | ER ---
Nurse's Notes [facility] Name: Eris Sue Age: 43 yrs Sex: Female : 1980 Arrival Date: 02/26/2024 Time: 00:17 Bed 7 Private MD: Diagnosis: Aortic Valve Vegetation. Aortic valve polyp Presentation: 02/25 00:40 Chief complaint: Patient states: HAD ECHO DONE ON 02/24/24. ACCOUNTING TECHNICIAN AT [address] WAS CONCERNED WITH THE FINDINGS AND TOLD HER TO COME TO THE ER RIGHT AWAY TO GET SEEN. PT IS ASYMPTOMATIC. Coronavirus screen: At this time, the client does not indicate any symptoms associated with coronavirus-19. Ebola Screen: No symptoms or risks identified at this time. Initial Sepsis Screen: Does the patient meet any 2 criteria? RR > 20 per min. Yes Does the patient have a suspected source of infection? No. Patient's initial sepsis screen is negative. Risk Assessment: Do you want to hurt yourself or someone else? Patient reports no desire to harm self or others. Onset of symptoms is unknown. 00:40 Method Of Arrival: Wheelchair [facility] 00:40 Acuity: ARIES 3 [facility] Triage Assessment: 00:40 General: Appears in no apparent distress. comfortable, Behavior is calm, cooperative, [facility] appropriate for age. Pain: Denies pain. Cardiovascular: Reports None SENT BY ACCOUNTING TECHNICIAN FOR CONCERNING ECHO RESULTS Denies chest pain, fatigue, lightheadedness, palpitations, INSOLE AND HEEL STIFFENER: 01:47 unknown aa10 Historical: - Allergies: 01:09 Bactrim; j7 - Home Meds: 01:45 Glimepiride Oral [Active]; Januvia Oral [Active]; lamotrigine oral [Active]; Metformin aa10 Oral [Active]; Risperdal Oral [Active]; Trulicity subcutaneous [Active]; - PMHx: 01:09 Bipolar disorder; Diabetes - NIDDM; Hypercholesterolemia; Hypertension; neuropathy; j7 - PSHx: 01:09 Arm - Left; section; j7 - Immunization history:: Adult Immunizations up to date, Client reports receiving the 2nd dose of the Covid vaccine, Flu vaccine is up to date. - Infectious Disease History:: Denies. - Social history:: Smoking status: Patient reports the use of cigarette tobacco products, Patient/guardian denies using alcohol, street drugs, IV drugs. - Family history:: not pertinent. Screenin:14 [facility] ED Fall Risk Assessment (Adult) History of falling in the last 3 months, jj7 including since admission No falls in past 3 months (0 pts) Confusion or Disorientation No (0 pts) Intoxicated or Sedated No (0 pts) Impaired Gait No (0 pts) Mobility Assist Device Used No (0 pt) Altered Elimination No (0 pt) Score/Fall Risk Level 0 - 2 = Low Risk Oriented to surroundings, Maintained a safe environment, Educated pt \T\ family on fall prevention, incl call for assistance when getting out of bed, Assessed \T\ reinforced patient's understanding of fall precautions. Abuse screen: Denies threats or abuse. Nutritional screening: No deficits noted. Tuberculosis screening: No symptoms or risk factors identified. Assessment: 01:16 General: Appears in no apparent distress. comfortable, Behavior is calm, cooperative. al5 Pain: Denies pain. Neuro: Level of Consciousness is awake, alert, obeys commands, Oriented to person, place, time, situation. Cardiovascular: Capillary refill < 3 seconds Patient's skin is warm and dry. Respiratory: Airway is patent Respiratory effort is even, unlabored, Respiratory pattern is regular, symmetrical. GI: No signs and/or symptoms were reported involving the gastrointestinal system. : No signs and/or symptoms were reported regarding the genitourinary system. EENT: No signs and/or symptoms were reported regarding the EENT system. Derm: Skin is intact, is healthy with good turgor, Skin is pink, warm \T\ dry. normal. Musculoskeletal: No signs and/or symptoms reported regarding the musculoskeletal system. 01:40 Reassessment: Patient and/or family updated on plan of care and expected duration. Pain br2 level reassessed. Patient is alert, oriented x 3, equal unlabored respirations, skin warm/dry/pink. Patient denies pain at this time. 02:20 Reassessment: Patient and/or family updated on plan of care and expected duration. Pain br2 level reassessed. Patient is alert, oriented x 3, equal unlabored respirations, skin warm/dry/pink. SITTING EATING FOOD HER FAMILY BROUGHT HER Patient denies pain at this time. 02:20 Reassessment: Patient appears in no apparent distress at this time. No changes from aa10 previously documented assessment. Patient and/or family updated on plan of care and expected duration. Pain level reassessed. Patient is alert, oriented x 3, equal unlabored respirations, skin warm/dry/pink. 03:04 Reassessment: No changes from previously documented assessment. Patient and/or family br2 updated on plan of care and expected duration. Pain level reassessed. Patient is alert, oriented x 3, equal unlabored respirations, skin warm/dry/pink. Patient denies pain at this time. 04:26 Reassessment: No changes from previously documented assessment. Patient and/or family br2 updated on plan of care and expected duration. Pain level reassessed. Patient is alert, oriented x 3, equal unlabored respirations, skin warm/dry/pink. Patient denies pain at this time. Vital Signs: 00:40 BP 145 / 86; Pulse 89; Resp 22; Temp 98; Pulse Ox 100% on R/A; Weight 122.47 kg; Height jj7 5 ft. 11 in. ; Pain 0/10; 01:21 BP 122 / 60; Pulse 82; Resp 18; Pulse Ox 100% on R/A; Pain 0/10; br2 02:20 BP 155 / 72; Pulse 86; Resp 18 S; Pulse Ox 100% on R/A; Pain 0/10; br2 03:04 BP 134 / 72; Pulse 81; Resp 18; Pulse Ox 100% ; Pain 0/10; br2 04:03 BP 158 / 75; Pulse 71; Resp 18; Pulse Ox 100% on R/A; br2 00:40 Body Mass Index 37.66 (122.47 kg, 180.34 cm) jj7 00:40 Pain Scale: Adult jj7 01:21 Pain Scale: Adult br2 02:20 Pain Scale: Adult br2 03:04 Pain Scale: Adult br2 [place] Coma Score: 03:59 Eye Response: spontaneous(4). Motor Response: obeys commands(6). Verbal Response: sp4 oriented(5). Total: 15. ED Course: 00:20 Patient arrived in ED. jj6 00:38 Eddy Kapadia MD is Attending Physician. sp4 00:40 Arm band placed on right wrist. Patient placed in an exam room, on a stretcher, on jj7 engine monitor, on pulse oximetry. 00:40 Patient has correct armband on for positive identification. Placed in gown. Bed in low jj7 position. Call light in reach. Side rails up X 1. Adult w/ patient. Provided Education on: USE OF CALL VILLASEÑOR. Client placed on continuous cardiac and pulse oximetry monitoring. NIBP monitoring applied. monitoring analyst on. Pulse ox on. Warm blanket given. 00:59 Yoko Clark, RN is Primary Nurse. br2 01:09 Triage completed. jj7 01:17 No provider procedures requiring assistance completed. Inserted saline lock: 20 gauge al5 in right antecubital area, using aseptic technique. Blood collected. Flushed with 10 mL NS. 01:18 First set of blood cultures drawn by me, Second set of blood cultures drawn by me, EKG aa10 done, by ED staff. Inserted saline lock: 20 gauge in right antecubital area, using aseptic technique. 01:25 Basic Metabolic Panel Sent. aa10 01:25 CBC with Diff Sent. aa10 01:25 LFT's Sent. aa10 01:25 Magnesium Sent. aa10 01:25 NT PRO-BNP Sent. aa10 01:25 PT-INR Sent. aa10 01:25 Troponin HS Sent. aa10 01:26 Blood Culture Adult (2) Sent. aa10 01:26 CRP Sent. aa10 03:49 Initiated transfer with Larry at [facility]. rv1 04:01 XRAY Chest (1 view) In Process Unspecified. EDMS 04:15 Pt accepted to [facility] ER by Dr. Bañuelos. Report #[id number]. rv1 04:36 Shyam with [facility] gave 15 min ETA for truck. rv1 04:58 Patient transferred, IV remains in place. br2 Administered Medications: No medications were administered Medication: 01:17 VIS not applicable for this client. al5 Outcome: 03:47 ER care complete, transfer ordered by . sp4 04:57 Transferred by ground EMS Transfer form completed. X-rays sent w/ patient. Note: [facility] br2 ZACH 04:57 Condition: good 04:57 Instructed on the need for transfer, Demonstrated understanding of instructions, 04:58 Patient left the ED. br2 Signatures: Dispatcher [employer] EDMS Anderson Tanvi jj6 Christina De Los Santos, RN RN jj7 Mary Brown Sergey, MD MD sp4 Vesna Cuevas RN RN al5 Yoko Clark RN RN br2 Lois Roach, RN RN aa10
--- NOTE | 2024-02-26 03:47 | EDPHYS ---
Physician Documentation [facility] Name: Eris Sue Age: 43 yrs Sex: Female : 1980 Arrival Date: 02/26/2024 Time: 00:17 Bed 7 Private MD: ED Physician Eddy aKpadia HPI: 02/25 00:39 This 43 yrs old Black Female presents to ER via Unassigned with complaints of SENT BY sp4 DR FORDE FOR POSSIBLE CARDIAC PROBLEM. 03:40 43-year-old female presents because her primary care physician requested that she comes sp4 here. On 02/25/2024 patient had echocardiogram that has revealed following -aortic valve, no aortic valve stenosis, no aortic valve regurgitation. There is focal small mobile structure noted on the left coronary cusp of the aortic valve with no associated aortic stenosis or regurgitation. Summary - normal left ventricular systolic function, estimated left ventricular ejection fraction greater than 60%, spectral Doppler shows normal left ventricular diastolic function. Focal small mobile structure noted on the left coronary cast above the aortic valve with no associated aortic stenosis or regurgitation. Unable to estimate systolic pulmonary artery pressure or right ventricular systolic pressure. If cardiac source of emboli is clinically suspected suggest transesophageal echocardiogram for further evaluation. . TAILMAN: 01:47 unknown aa10 Historical: - Allergies: 01:09 Bactrim; jj7 - Home Meds: 01:45 Glimepiride Oral [Active]; Januvia Oral [Active]; lamotrigine oral [Active]; Metformin aa10 Oral [Active]; Risperdal Oral [Active]; Trulicity subcutaneous [Active]; - PMHx: 01:09 Bipolar disorder; Diabetes - NIDDM; Hypercholesterolemia; Hypertension; neuropathy; jj7 - PSHx: 01:09 Arm - Left; section; jj7 - Immunization history:: Adult Immunizations up to date, Client reports receiving the 2nd dose of the Covid vaccine, Flu vaccine is up to date. - Infectious Disease History:: Denies. - Social history:: Smoking status: Patient reports the use of cigarette tobacco products, Patient/guardian denies using alcohol, street drugs, IV drugs. - Family history:: not pertinent. ROS: 03:59 Constitutional: Negative for fever, chills, and weight loss, sp4 03:59 All other systems are negative, Exam: 03:59 Constitutional: This is a well developed, well nourished patient who is awake, alert, sp4 and in no acute distress. Head/Face: Normocephalic, atraumatic. Eyes: Pupils equal round and reactive to light, extra-ocular motions intact. Lids and lashes normal. Conjunctiva and sclera are not injected. Cornea within normal limits. Periorbital areas with no swelling, redness, or edema. ENT: Nares patent. No nasal discharge, no septal abnormalities noted. Tympanic membranes are normal and external auditory canals are clear. Oropharynx with no redness, swelling, or masses, exudates, or evidence of obstruction, uvula midline. Mucous membranes moist. Neck: Trachea midline, no thyromegaly or masses palpated, and no cervical lymphadenopathy. Supple, full range of motion without nuchal rigidity, or vertebral point tenderness. Chest/axilla: Normal chest wall appearance and motion. Nontender with no deformity. No lesions are appreciated. Cardiovascular: Regular rate and rhythm with a normal S1 and S2. No gallops, murmurs, or rubs. Normal PMI, no JVD. No pulse deficits. Respiratory: Lungs have equal breath sounds bilaterally, clear to auscultation and percussion. No rales, rhonchi or wheezes noted. No increased work of breathing, no retractions or nasal flaring. Abdomen/GI: Soft, with normal bowel sounds. No distension or tympany. No guarding or rebound. No evidence of tenderness throughout. Back: No spinal tenderness. No costovertebral tenderness. Skin: Warm, dry with normal turgor. Normal color with no rashes, no lesions, and no evidence of cellulitis. MS/ Extremity: Pulses equal, no cyanosis. Neurovascular intact. Full, normal range of motion. Neuro: Awake and alert, GCS 15, oriented to person, place, time, and situation. Cranial nerves II-XII grossly intact. Motor strength 5/5 in all extremities. Sensory grossly intact. Psych: Awake, alert, with orientation to person, place and time. Behavior, mood, and affect are within normal limits 03:59 ECG was reviewed by the Attending Physician. EKG at 0 136 normal sinus rhythm rate 73 Vital Signs: 00:40 BP 145 / 86; Pulse 89; Resp 22; Temp 98; Pulse Ox 100% on R/A; Weight 122.47 kg; Height jj7 5 ft. 11 in. ; Pain 0/10; 01:21 BP 122 / 60; Pulse 82; Resp 18; Pulse Ox 100% on R/A; Pain 0/10; br2 02:20 BP 155 / 72; Pulse 86; Resp 18 S; Pulse Ox 100% on R/A; Pain 0/10; br2 03:04 BP 134 / 72; Pulse 81; Resp 18; Pulse Ox 100% ; Pain 0/10; br2 04:03 BP 158 / 75; Pulse 71; Resp 18; Pulse Ox 100% on R/A; br2 00:40 Body Mass Index 37.66 (122.47 kg, 180.34 cm) jj 00:40 Pain Scale: Adult jj7 01:21 Pain Scale: Adult br2 02:20 Pain Scale: Adult br2 03:04 Pain Scale: Adult br2 [place] Coma Score: 03:59 Eye Response: spontaneous(4). Motor Response: obeys commands(6). Verbal Response: sp4 oriented(5). Total: 15. MDM: 00:38 Medical Screening Exam initiated sp4 04:01 Differential diagnosis: arrythmia, dehydration, stress disorder, Acute infectious sp4 endocarditis. Data reviewed: vital signs, nurses notes, EMS record, old medical records, lab test result(s), EKG, radiologic studies. Consideration of Admission/Observation Escalation of care including admission/observation considered. ED course: Patient was discussed with transfer service at [facility]. 02/25 00:38 Order name: Basic Metabolic Panel; Complete Time: 03:25 sp4 02/25 00:38 Order name: CBC with Diff; Complete Time: 03:25 sp4 02/25 00:38 Order name: LFT's; Complete Time: 03:25 sp4 02/25 00:38 Order name: Magnesium; Complete Time: 03:25 sp4 02/25 00:38 Order name: NT PRO-BNP; Complete Time: 03:25 sp4 02/25 00:38 Order name: PT-INR; Complete Time: 03:25 sp4 02/25 00:38 Order name: Troponin HS; Complete Time: 03:25 sp4 02/25 01:07 Order name: CRP; Complete Time: 03:25 sp4 02/25 01:07 Order name: Blood Culture Adult (2) sp4 02/25 00:38 Order name: XRAY Chest (1 view) sp4 02/25 00:38 Order name: Cardiac monitoring; Complete Time: sp4 02/25 00:38 Order name: EKG - Nurse/Tech; Complete Time: 01:41 sp4 02/25 00:38 Order name: IV Saline Lock; Complete Time: sp4 02/25 00:38 Order name: Labs collected and sent; Complete Time: sp4 02/25 00:38 Order name: O2 Per Protocol; Complete Time: sp4 02/25 00:38 Order name: O2 Sat Monitoring; Complete Time: sp EC:36 Rate is 73 beats/min. Rhythm is regular, Normal Sinus Rhythm. QRS [place] is Normal. HI sp4 interval is normal. QRS interval is normal. QT interval is normal. No Q waves. T waves are Normal. No ST changes noted. Clinical impression: Normal ECG. Interpreted by me. Reviewed by me. Administered Medications: No medications were administered Disposition Summary: 02/26/24 03:47 Transfer Ordered Notes: Transfer Location: [facility] sp4 Reason: Higher level of care sp4 Condition: Stable sp4 Problem: new sp4 Symptoms: have improved sp4 Accepting Physician: Attending at [facility] (02/26/24 04:58) br2 Diagnosis - Aortic Valve Vegetation. Aortic valve polyp sp4 Forms: - Medication Reconciliation Form sp4 - SBAR form sp4 Signatures: Dispatcher [employer] EDChristina Ac RN RN jjEddy Ash MD MD sp4 Yoko Clark RN RN br2 Lois Roach RN RN aa10 Corrections: (The following items were deleted from the chart) 00:39 00:39 BASIC METABOLIC PANEL+C.LAB.BRZ ordered. EDMS EDMS 00:39 00:39 CBC+H.LAB.BRZ ordered. EDMS EDMS 00:39 00:39 HEPATIC FUNCTION+C.LAB.BRZ ordered. EDMS EDMS 00:39 00:39 MAGNESIUM+C.LAB.BRZ ordered. EDMS EDMS 00:39 00:39 PROBNP+C.LAB.BRZ ordered. EDMS EDMS 00:39 00:39 PROTIME (+INR)+COAG.LAB.BRZ ordered. EDMS EDMS 00:39 00:39 Troponin High Sensitivity+C.LAB.BRZ ordered. EDMS EDMS 00:39 00:39 Chest Single View+RAD.RAD.BRZ ordered. EDMS EDMS 01:08 01:07 C-REACTIVE PROTEIN+C.LAB.BRZ ordered. EDMS EDMS 01:08 01:07 BLOOD CULTURE*+BA.LAB.BRZ ordered. EDMS EDMS 04:58 03:47 Attending at [facility] sp4 br2
[2024-02-26 05:26] VITALS: TEMP 98; O2SAT 100
[2024-02-26 05:31] VITALS: BP 158/75
--- NOTE | 2024-02-26 08:54 | RAD REPORT ---
EXAM: XR Chest, 1 View CLINICAL HISTORY: The patient is 43 years old and is Female; CHEST PAIN TECHNIQUE: Frontal view of the chest. COMPARISON: No relevant prior studies available. FINDINGS: Lungs: Unremarkable. No consolidation. Pleural space: Unremarkable. No pneumothorax. Heart: Unremarkable. Mediastinum: Unremarkable. Normal mediastinal contour. Bones/joints: There is some cortical irregularity involving the left fourth and fifth ribs. IMPRESSION: There is some cortical irregularity involving the left fourth and fifth ribs. Correlate with any concern for fracture. Electronically signed by: Lionel Jade MD 02/26/2024 05:24 AM [facility] 8 Due to temporary technical issues with the [employer] reporting system, reports are being victoriano d by the in-house radiologist without review as a courtesy to ensure prompt reporting the interpreting radiologist is fully responsible for the content of the report. Transcribed Date/Time: 02/26/2024 8:53 AM
--- NOTE | 2024-03-02 11:23 | EKG ---
Test Date: 2024-02-26 Test Time: 01:36:51 Showroom Manager: SHELLEY MEASUREMENT RESULTS: Intervals: Rate: 73 CT: 174 QRSD: 78 QT: 360 QTc: 396 [place]: P: 61 CT: 174 QRS: 32 T: 35 INTERPRETIVE STATEMENTS: Normal sinus rhythm Normal ECG Compared to ECG 08/18/2015 10:08:58 No significant changes Electronically Signed On 03-02-24 11:16:18 AUTOMATIC SILK SCREEN PRINTER by Davy Mackay
== END 2024-02-26 04:58 | disposition short-term general hospital (02) ==
LOC: ER 00:17
DX: I33.0 Acute and subacute infective endocarditis (principal); R93.1 Abnormal findings on diagnostic imaging of heart and coronary circulation; E11.9 Type 2 diabetes mellitus without complications; E78.00 Pure hypercholesterolemia, unspecified; I10 Essential (primary) hypertension; F31.9 Bipolar disorder, unspecified; E11.40 Type 2 diabetes mellitus with diabetic neuropathy, unspecified; F17.210 Nicotine dependence, cigarettes, uncomplicated; Z88.1 Allergy status to other antibiotic agents
CPT/HCPCS: 36415; 71045; 80048; 80076; 83735; 83880; 84484; 85025; 85610; 86140; 87040; 93005; 99285

== ENCOUNTER 2024-03-26 10:06 | Emergency (ER) | payer OTHER ==
--- NOTE | 2024-03-26 12:06 | ER ---
Nurse's Notes [facility] Name: Eris Sue Age: 43 yrs Sex: Female : 1980 Arrival Date: 03/26/2024 Time: 10:06 Bed [id number] Private MD: Diagnosis: Presentation: 03/26 10:31 Chief complaint: Patient states: she believes she ate some bad seafood Saturday03/22/2024 ap3 and has been having nausea, vomiting, and diarrhea with left sided abdominal pain. patient currently rates her pain as a 10/10 on the pain scale. Coronavirus screen: At this time, the client does not indicate any symptoms associated with coronavirus-19. Ebola Screen: No symptoms or risks identified at this time. Initial Sepsis Screen: Does the patient meet any 2 criteria? No. Patient's initial sepsis screen is negative. Does the patient have a suspected source of infection? No. Patient's initial sepsis screen is negative. Risk Assessment: Do you want to hurt yourself or someone else? Patient reports no desire to harm self or others. Onset of symptoms was March 23, 2024. 10:31 Method Of Arrival: Wheelchair ap3 10:31 Acuity: ARIES 3 ap3 Triage Assessment: 10:34 General: Appears in no apparent distress. Behavior is calm, cooperative, appropriate ap3 for age, Reports feeling ill for. Pain: Complains of pain in abdomen Pain currently is 10 out of 10 on a pain scale. Pain began gradually, 2-3 days ago. Neuro: Level of Consciousness is awake, alert, obeys commands, Oriented to person, place, time, situation, Appropriate for age. Cardiovascular: Patient's skin is warm and dry. Respiratory: Airway is patent Respiratory effort is even, unlabored, Respiratory pattern is regular, symmetrical. GI: Reports lower abdominal pain, upper abdominal pain, diarrhea, nausea, vomiting. COUNTER POCKET TRIMMER: 10:35 LMP 03/09/2024, unknown ap3 Historical: - Allergies: 10:33 Bactrim; ap3 - PMHx: 10:33 Bipolar disorder; Diabetes - NIDDM; Hypercholesterolemia; Hypertension; neuropathy; ap3 - PSHx: 10:33 Arm - Left; section; ap3 - Immunization history:: Client reports receiving the 2nd dose of the Covid vaccine, Flu vaccine is up to date. - Infectious Disease History:: Denies. - Social history:: Smoking status: Patient reports the use of cigarette tobacco products, smokes one-half pack cigarettes per day. Screenin:34 [facility] ED Fall Risk Assessment (Adult) History of falling in the last 3 months, ap3 including since admission No falls in past 3 months (0 pts) Confusion or Disorientation No (0 pts) Intoxicated or Sedated No (0 pts) Impaired Gait No (0 pts) Mobility Assist Device Used No (0 pt) Altered Elimination No (0 pt) Score/Fall Risk Level 0 - 2 = Low Risk Oriented to surroundings, Maintained a safe environment, Educated pt \T\ family on fall prevention, incl call for assistance when getting out of bed, Assessed \T\ reinforced patient's understanding of fall precautions, Hourly rounding (assess needs \T\ fall precautionary measures) done, Used ambulatory aids as needed (educated on \T\ assisted with), Used gait belt as appropriate. Abuse screen: Denies threats or abuse. Nutritional screening: No deficits noted. Tuberculosis screening: No symptoms or risk factors identified. Vital Signs: 10:31 BP 129 / 78; Pulse 87; Resp 17; Temp 98.4(TE); Pulse Ox 100% on R/A; Weight 123.38 kg; ap3 Height 5 ft. 11 in. ; Pain 10/10; 10:31 Body Mass Index 37.94 (123.38 kg, 180.34 cm) ap3 10:31 Pain Scale: Adult ap3 ED Course: 10:09 Patient arrived in ED. ra3 10:21 Rinku Mercedes MD is Attending Physician. rt 10:33 Triage completed. ap3 10:35 Arm band placed on right wrist. ap3 Administered Medications: No medications were administered Outcome: 12:05 Patient left the ED. ap3 Signatures: Vesna Mason RN RN ap3 Rinku Mercedes MD MD rt Rakel Estrada ra3
[2024-03-26 12:12] VITALS: BP 129/78; TEMP 98.4; O2SAT 100
== END 2024-03-26 12:05 | disposition left against medical advice (07) ==
LOC: ER 10:06
DX: Z53.21 Procedure and treatment not carried out due to patient leaving prior to being seen by health care provider (principal)
CPT/HCPCS: 99281